=== PATIENT | female | born 1950 | race Caucasian/White ===

== ENCOUNTER 2021-03-28 13:02 | Emergency (ER) | payer MEDICARE ==
[~2021-03-28] VITALS: Ht 165.1 cm; Wt 55.3 kg
[~2021-03-28 13:02] MED LIST: ALLOPURINOL100 MG PO; BACTRIM 400-801 EACH PO; ESOMEPRAZOLE MA40 MG PO; FENOFIBRATE160 MG PO; FUROSEMIDE20 MG PO; LOSARTAN-HCTZ1 EAC1 PO; METOPROLOL TART50 MG PO; NIFEDIPINE ER90 MG PO; OLANZAPINE5 MG PO; POTASSIUM CHLO20 ME1 PO; PREDNISONE20 MG PO; SIMVASTATIN40 MG PO; VENTOLIN HFA18 GM INH; ZITHROMAX250 MG PO
--- NOTE | 2021-03-29 13:36 | EKG ---
[facility] [address] [facility] [place] [address] Signed Sinus rhythm with occasional premature ventricular complexes Left posterior fascicular block Abnormal ECG When compared with ECG of 08-FEB-2021 06:35, No significant change was found Confirmed by SANDRA FOSTER MD ([id number]) on 03/29/2021 1:36:34 PM Electronically Signed By: SANDRA FOSTER MD 03/29/21 1336 PATIENT NAME: MAEE TORIBIO Electrocardiogram DATE OF : 48 PHYSICIAN: SANDRA FOSTER MD REPORT #: [id number] REPORT IS CONFIDENTIAL AND NOT TO BE RELEASED WITHOUT AUTHORIZATION
== END 2021-03-28 17:45 | disposition short-term general hospital (02) ==
LOC: ED 13:02
DX: S72.141A Displaced intertrochanteric fracture of right femur, initial encounter for closed fracture (principal); Z20.822 Contact with and (suspected) exposure to COVID-19; W01.10XA Fall on same level from slipping, tripping and stumbling with subsequent striking against unspecified object, initial encounter; I10 Essential (primary) hypertension; M10.9 Gout, unspecified; Z79.899 Other long term (current) drug therapy; Z79.52 Long term (current) use of systemic steroids
CPT/HCPCS: 51702; 71045; 73502; 80053; 81001; 85025; 85610; 93005; 93010; 99285-25; C9803; J1170; U0003

== ENCOUNTER 2021-08-28 16:54 | Inpatient (IN) | payer MEDICARE ==
[~2021-08-28] VITALS: Ht 165.1 cm; Wt 53.0 kg
--- OUTSIDE RECORDS SUMMARY | 2021-08-28 16:56 | XMS ---
PreManage Notification: AMEE TORIBIO Security Cna Per Diem Events 1 event(s) in the past 18 months Most recent security events: Elopement at [facility] 02/07/2021 22:29 - Other Details: PATIENT LWBS CRITERIA MET - [facility] 02/08/2021-Current PHONE: Unknown Care Guidelines exist for the following facilities: [facility] ( 09/09/2019 ) Kiersten VISIT COUNT (12 MO.) [address] [place] [address] TOTAL 4 NOTE: Visits indicate total known visits. 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 - Fall on same level from slipping, tripping and stumbling with subsequent striking against unspecified object, initial encounter - Essential (primary) hypertension - Gout, unspecified - Displaced intertrochanteric fracture of right femur, initial encounter for closed fracture - Other intermediate accountant (current) drug therapy 02/08/2021 06:14 [facility] [place] TYPE: Emergency COMPLAINT: - COUGH DIAGNOSES: - Pneumonia, unspecified organism - Other care home (current) drug therapy - Urinary tract infection, site not specified - Essential (primary) hypertension - Acute pharyngitis, unspecified - Contact with and (suspected) exposure to COVID-19 - Gout, unspecified 02/07/2021 22:29 [facility] TYPE: Emergency COMPLAINT: - COUGH INPATIENT VISIT TRACKING (12 MO.) 04/04/2021 14:54 [facility] Francy CISNEROS TYPE: Physical Therapy DIAGNOSES: - Chronic kidney disease, stage 4 (severe) - Personal history of (healed) traumatic fracture - Other acute postprocedural pain - Fluid overload, unspecified - Pain in right hip - Retention of urine, unspecified - Hip fracture - Other specified postprocedural states - Other specified health status - Acute kidney failure, unspecified - Hyperlipidemia, unspecified - Other malaise - Solitary pulmonary nodule - Essential (primary) hypertension - Unspecified abnormalities of gait and mobility - Displaced intertrochanteric fracture of right femur, subsequent encounter for closed fracture with routine healing - Polycystic kidney, adult type - Anemia in chronic kidney disease [facility] DIAGNOSES: - Anemia in chronic kidney disease - Displaced intertrochanteric fracture of right femur, initial encounter for closed fracture - Polycystic kidney, adult type - Chronic kidney disease, stage 4 (severe) - Right hip fracture - Essential (primary) hypertension [email or web address]
[2021-08-29] MEDS ORDERED: LOSARTAN POTAS100 MG PO (13:06)
[2021-08-29] MEDS ORDERED: ATROVENT HFA12.9 GM INH (13:06)
[2021-08-29] MEDS ORDERED: TRAMADOL HCL50 MG PO (13:10)
[2021-08-29] MEDS ORDERED: INDAPAMIDE1.25 MG PO (13:12)
--- NOTE | 2021-08-31 19:05 | EKG ---
[facility] [address] [facility] [place] [address] Signed Sinus rhythm with frequent premature ventricular complexes in a pattern of bigeminy Nonspecific ST abnormality Abnormal ECG When compared with ECG of 28-MAR-2021 14:09, Non-specific change in ST segment in Anterior leads T wave inversion no longer evident in Lateral leads Confirmed by SANDRA FOSTER MD ([id number]) on 08/31/2021 7:05:18 PM Electronically Signed By: SANDRA FOSTER MD 08/31/21 190 PATIENT NAME: AMEE TORIBIO Electrocardiogram DATE OF : 48 PHYSICIAN: SANDRA FOSTER MD REPORT #: [id number] REPORT IS CONFIDENTIAL AND NOT TO BE RELEASED WITHOUT AUTHORIZATION
[2021-09-02] MEDS ORDERED: FERROUS SULFAT325 M2 PO (11:26)
== END 2021-09-02 15:00 | disposition home or self-care (01) | DRG 291 ==
LOC: ED 16:54 → CCU 20:41 → MS 08-30 12:13
PROVIDERS: ADMIT Internal Medicine; ATTEND Internal Medicine
DX: I13.0 Hypertensive heart and chronic kidney disease with heart failure and stage 1 through stage 4 chronic kidney disease, or unspecified chronic kidney disease (principal); J96.01 Acute respiratory failure with hypoxia; J96.02 Acute respiratory failure with hypercapnia; I50.33 Acute on chronic diastolic (congestive) heart failure; I16.1 Hypertensive emergency; N18.4 Chronic kidney disease, stage 4 (severe); Q61.3 Polycystic kidney, unspecified; Z20.822 Contact with and (suspected) exposure to COVID-19; E79.0 Hyperuricemia without signs of inflammatory arthritis and tophaceous disease; E78.5 Hyperlipidemia, unspecified; I27.20 Pulmonary hypertension, unspecified; M10.9 Gout, unspecified; M48.00 Spinal stenosis, site unspecified; Z98.890 Other specified postprocedural states
CPT/HCPCS: 36415; 36600; 71045; 74176; 80048; 82728; 82803; 83540; 83550; 83735; 83880; 84484; 85025; 93005; 93010; 93306; 94660; 94760; 96374; 97161; 97165; 99285-25; A9270; J1650; J1940; J3475; U0003

== ENCOUNTER 2021-11-12 11:27 | Observation (INO) | payer MEDICARE ==
[~2021-11-12] VITALS: Ht 165.1 cm; Wt 53.5 kg
[~2021-11-12 11:27] MED LIST changes: +ATROVENT HFA12.9 GM INH; +FERROUS SULFAT325 M2 PO; +INDAPAMIDE1.25 MG PO; +LOSARTAN POTAS100 MG PO; +TRAMADOL HCL50 MG PO
--- OUTSIDE RECORDS SUMMARY | 2021-11-12 11:31 | XMS ---
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 - Fall on same level from slipping, tripping and stumbling with subsequent striking against unspecified object, initial encounter - Essential (primary) hypertension - Gout, unspecified - Displaced intertrochanteric fracture of right femur, initial encounter for closed fracture - Other salvage determiner (current) drug therapy 02/08/2021 06:14 [facility] [place] TYPE: Emergency COMPLAINT: - COUGH DIAGNOSES: - Pneumonia, unspecified organism - Other salvage determiner (current) drug therapy - Urinary tract infection, site not specified - Essential (primary) hypertension - Acute pharyngitis, unspecified - Contact with and (suspected) exposure to COVID-19 - Gout, unspecified 02/07/2021 22:29 [facility] [place] TYPE: Emergency COMPLAINT: - COUGH INPATIENT VISIT TRACKING (12 MO.) 08/28/2021 20:41 [facility] [place] TYPE: Medical Surgical COMPLAINT: - DECOMPENSATED HEART FAILURE DIAGNOSES: - Contact with and (suspected) exposure to COVID-19 - Other specified postprocedural states - Chronic kidney disease, stage 4 (severe) - Hyperlipidemia, unspecified - Hyperuricemia without signs of inflammatory arthritis and tophaceous disease - Acute on chronic diastolic (congestive) heart failure - Gout, unspecified - Acute respiratory failure with hypoxia - Acute respiratory failure with hypercapnia - Polycystic kidney, unspecified - Hypertensive emergency - Heart failure, unspecified - Pulmonary hypertension, unspecified - Spinal stenosis, site unspecified - Hypertensive heart and chronic kidney disease with heart failure and stage 1 through stage 4 chronic kidney disease, or unspecified chronic kidney disease 04/04/2021 14:54 [facility] Francy CISNEROS TYPE: Physical Therapy DIAGNOSES: - [...] Anemia in chronic kidney disease 03/28/2021 19:[address] Francy CISNEROS TYPE: Surgical Services DIAGNOSES: - Anemia in chronic kidney disease - Displaced intertrochanteric fracture of right femur, initial encounter for closed fracture - Polycystic kidney, adult type - Chronic kidney disease, stage 4 (severe) - Right hip fracture - Essential (primary) hypertension [email or web address]
[2021-11-12] MEDS ORDERED: TORSEMIDE10 MG PO (12:44)
--- NOTE | 2021-11-12 14:43 | NUR ---
ADMISSION ASSESSMENT COMPLETE - PT RESTING IN BED, ROUNDING ON PT. PT DENIES CP, SOB OR DIZZINESS. CURRENT VS STABLE. ORDERS ACKNOWLEDGED FOR BLOOD TRANSFUSION. PT DENIES NEEDS AT THIS TIME, CALL LIGHT IN REACH.
--- NOTE | 2021-11-12 15:46 | NUR ---
RN IN ROOM TO START BLOOD UNIT 1 OF 2. PT UP IN CHAIR TALKING ON PHONE. PT AMBULATES TO BATHROOM USING FWW WITHOUT DIFFICULTY, SOB OR DIZZINESS. CALL LIGHT IN LAP.
[2021-11-12] MEDS ORDERED: POTASSIUM CHLO10 MEQ PO (16:03)
--- NOTE | 2021-11-12 16:36 | NUR ---
RN ROUNDING ON PT - DENIES SOB, OR PAIN. CALL LIGHT IN REACH.
--- NOTE | 2021-11-12 17:53 | NUR ---
RN ROUNDING ON PT - ASLEEP IN CHAIR, RR EVEN AND UNLABORED. BLOOD INFUSING WITHOUT DIFFICULTY. CALL LIGHT IN HAND.
--- NOTE | 2021-11-12 18:57 | NUR ---
RN IN ROOM TO ADMINISTER BLOOD UNIT 2/2. PT UP IN CHAIR, DENIES NEEDS. HAS CALL LIGHT IN REACH. VS STABLE.
--- NOTE | 2021-11-12 19:00 | NUR ---
BEDSIDE REPORT FROM AKTHERINE Rachel RN, KATHERINE IS STARTING 2ND UNIT OF BLOOD PER ORDERS AT THIS TIME, PT IS SITTING UP IN RECLINER, ALERT AND ORIENTED. PER REPORT PT HAS BEEN HYPERTENSIVE SINCE ADMIT. WILL MONITOR. PT HAS NO REQUESTS OR CONCERNS AT THIS TIME.
--- NOTE | 2021-11-12 19:35 | NUR ---
IN TO ASSIST PT WITH TOILETING NEEDS, PT SBA FWW, BACK TO THE CHAIR, NO FURTHER NEEDS AT THIS TIME
--- NOTE | 2021-11-12 21:01 | NUR ---
IN TO ASSIST PT TO THE TOILET, BACK TO THE CHAIR, RN NOW IN RM
--- NOTE | 2021-11-12 22:00 | NUR ---
SECOND UNIT OF BLOOD COMPLETED AT THIS TIME, PT ASSESSMENT SHOWS NO SIGNS OF INFUSION REACTION OF THIS TIME.
--- NOTE | 2021-11-12 23:21 | NUR ---
PT BACK FORM THE TOILET, SBA FWW TO BED, RN IN RM, WARM BLANKET PROVIDED
--- NOTE | 2021-11-12 23:40 | NUR ---
EXTRACTOR OPERATOR REPORTS UNABLE TO DRAW TO OBTAIN BLOOD FOR LABS AFTER TWO ATTEMPTS, THIS RN INTO ATTEMPT, BLOOD OBTAINED AND SENT TO LAB. PT RESTING IN BED ALERT AND ORIENTED. NO FURTHER REQUESTS AT THIS TIME.
--- NOTE | 2021-11-13 00:04 | NUR ---
DR FOSTER CALLED, STATED HE REVIEWED LABS, NO FURTHER BLOOD NEEDED AT THIS TIME.
--- NOTE | 2021-11-13 01:03 | NUR ---
PT CALLED FOR ASSISTANCE TO GO TO THE BATHROOM, SHE REPORTED TO BOBBY COKER THAT SHE FELT MILD TIGHTNESS IN HER CHEST. THIS RN INTO ASSESS, V/S TAKEN, PT REPORTS 2/10 MILD PAIN AT HER CHEST SHE SAID SHE USUALLY TAKES TYLENOL THREE TIMES A DAY AND JUST REALIZED SHE HASNT HAD ANY TODAY. V/S STABLE. PT RELAXED IN BED AFTER UP TO VOID IN BATHROOM. NO OTHER CONCERNS AT THIS TIME, TYLENOL 500MG PO PRN PROVIDED AT THIS TIME. WILL MONITOR FOR ANY CHANGES IN SYMPTOMS.
--- NOTE | 2021-11-13 04:33 | NUR ---
PT HAS BEEN UP FREQUENTLY TO AMBULATE TO BATHROOM WITH FWW AND ONE PERSON ASSIST, SHE IS TOLERATING ACTIVITY WELL, WITH STEADY GAIT. SHE HAS BEEN ADMINSITERED PRN TYKENOL FOR 2/10 CHEST DISCOMFORT THAT RESOLVED, SHE REPORTS SHE TAKES TYLENOL THREE TIMES A DAY AND HAS NOT HAD ANY TODAY. SHE HAS BEEN CONCERNED OVER SHIFT IN REGARDS TO HER HOME MEDICATIONS BEING ADMINISTERED WHILE IN HOSPITAL. SHE HAS HAD 2 UNITS RBC'S INFUSED AND TOLERATED WELL WITH OUT INFUSION REACTIONS. POST TRANSFUSION LABS INDICATE IMPROVED HGB. AWARE. NO NEW CONCERNS.
--- NOTE | 2021-11-13 06:26 | NUR ---
PT CALLED NURSES STATION FOR ASSISTANCE TO BATHROOM TO VOID, STANDBY ASSIST WITH FWW, PT HAS STEADY GAIT, PT NOW UP TO RECLINER WARM BLANKET AND SPRITE PROVIDED. SHE REPORTS THAT IF SHE DOES NOT HAVE BM THIS AM SHE WILL NEED ANOTHER CUP OF COFFEE, SHE DID NOT HAVE BM YESTURDAY. PT LAST BM ON 11-11-21.
--- NOTE | 2021-11-13 07:50 | NUR ---
patient up in the chair. said she would like to take a shower later. warm washcloth [facility]. no further needs at this time.
--- NOTE | 2021-11-13 07:55 | NUR ---
Patient awake sitting up in chair, no distress. Patient reports she slept well last night. PT denies pain at this time. No reported needs, personal supplies and call light within reach,
--- NOTE | 2021-11-13 08:19 | NUR ---
Tylenol 500mg po admin for reports of chronic right hip/back pain.
--- NOTE | 2021-11-13 11:12 | NUR ---
Patient up to void at this time, tolerated ambulating well using fww. Patient denies needs at this time. Personal supplies and call light within reach.
[2021-11-13] MEDS ORDERED: POTASSIUM CHLO10 MEQ PO (12:50)
[2021-11-13] MEDS ORDERED: LOSARTAN POTAS100 MG PO (12:50)
[2021-11-13] MEDS ORDERED: FERROUS SULFAT325 MG PO (12:51)
--- NOTE | 2021-11-13 13:01 | NUR ---
PATIENT IS IN THE SHOWER. BOBBY GIL IS STANDING BY FOR ASSISTANCE. PATEINT IS ABLE TO DO MOST OF THE WORK ON HER OWN. IV'S REMOVED.
== END 2021-11-13 14:40 | disposition home or self-care (01) ==
LOC: ED 11:27 → MS 11:28
PROVIDERS: ADMIT Internal Medicine; ATTEND Internal Medicine
DX: I13.2 Hypertensive heart and chronic kidney disease with heart failure and with stage 5 chronic kidney disease, or end stage renal disease (principal); N18.5 Chronic kidney disease, stage 5; D63.1 Anemia in chronic kidney disease; I50.32 Chronic diastolic (congestive) heart failure; K21.9 Gastro-esophageal reflux disease without esophagitis; E78.5 Hyperlipidemia, unspecified; E79.0 Hyperuricemia without signs of inflammatory arthritis and tophaceous disease; Q61.3 Polycystic kidney, unspecified; Z20.822 Contact with and (suspected) exposure to COVID-19; F39 Unspecified mood [affective] disorder
CPT/HCPCS: 36415; 36430; 80053; 81001; 82565; 83735; 84520; 85018; 85025; 85060; 86850; 86900; 86901; 86922; 87088; 87502; 99284; A9270; C9803; G0378; P9016; U0003

== ENCOUNTER 2022-11-20 10:36 | Inpatient (IN) | payer MEDICARE ==
[~2022-11-20] VITALS: Ht 165.1 cm; Wt 54.2 kg
[2022-11-20] VITALS (13 sets, daily range): BP systolic 100–176; BP diastolic 71–144
--- OUTSIDE RECORDS SUMMARY | ~2022-11-20 | XMS | Continuity of Care Document ---
Demographics + + + | Address | [address] | | | [place] [address] | + + + | Preferred Language | Unknown | + + + | Marital Status | Never | + + + | Rastafari Affiliation | Unknown | + + + | Race | White | + + + | Ethnic Group | Unknown | + + + Author + + + | Author | [facility] | + + + | Organization | [facility] | + + + | Address | [address] | | | [place] [address] | + + + | Phone | | + + + Care Team Providers + + + + | Care Structurer Name | Role | Phone | + + + + Unavailable | Unavailable | + + + + Allergies and Intolerances + + + + + + | date | description | facility | reaction | severity | + + + + + + | (no date) | No Known | [facility] | (no reaction) | (no severity) | | | Allergies | | | | + + + + + + Encounters No information. Functional Status No information. Immunizations No information. Medications No information. Problems No information. Procedures No information. Results/Labs No information. Social History No information. Vital Signs No information."
[~2022-11-20 10:36] MED LIST changes: +FERROUS SULFAT325 MG PO; +POTASSIUM CHLO10 MEQ PO; +TORSEMIDE10 MG PO
--- OUTSIDE RECORDS SUMMARY | 2022-11-20 10:38 | XMS ---
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 ED/UCC VISIT TRACKING (12 MO.) 11/20/2022 10:37 [facility] [place] TYPE: Emergency COMPLAINT: - LOW O2, DEHYDRATION INPATIENT VISIT TRACKING (12 MO.) No inpatient visits to display in this time frame [email or web address]
--- NOTE | 2022-11-20 14:43 | NUR ---
PT ARRIVED FROM [facility] WITH M/S CHARGE, PT IS AWAKE AND ALERT, ANSWERING QUESTIONS APPROPRIATELY, NO APPARENT DISTRESS, PT DENIES PAIN/SHORTNESS OF BREATH. PTS RESTING HR IS 150'S ON TELEMETRY. PT SWITCHED OVER TO HOOF TRIMMER, GIVEN CCU ORIENTATION AND PLAN OF CARE. IV METOPROLOL GIVEN PER EMAR, HR QUICKLY DOWN TO 120'S. REPORT RECEIVED FROM LATIA QUINTANILLA. PT IS ON ROOM AIR WITH SPO2 97%. PT ALSO GIVEN KAYEXELATE PER EMAR FOR HYPERKALEMIA.
--- NOTE | 2022-11-20 15:41 | NUR ---
PT UP TO [facility] TO VOID, PT WAS ONLY ABLE TO VOID 10 ML THEN BACK TO BED, STATES THIS IS NORMAL FOR HER TO VOID SMALL AMOUNTS "EVERY 20 MINUTES". BLADDER SCAN DONE SHOW 276ML. RESTING HR CURRENTLY 120'S SINUS RHYTHM.
--- NOTE | 2022-11-20 15:55 | NUR ---
PT UP TO BSC TO VOID AND HAVE BOWEL MOVEMENT, HR UP TO 140'S WITH ACTIVTY, BACK TO BED, DENIES PAIN/SOB.
[2022-11-20] MEDS ORDERED: METOPROLOL TAR100 MG PO (15:56)
[2022-11-20] MEDS ORDERED: POTASSIUM CHLO10 MEQ PO (16:00)
[2022-11-20] MEDS ORDERED: LOSARTAN POTAS100 MG PO (16:01)
--- NOTE | 2022-11-20 16:45 | NUR ---
PT UP TO BSC FOR SMALL LOOSE STOOL AND VOID, STOOL IS BLACK AND SOMEWHAT OILY IN APPEARANCE. HEMOCULT DONE IS NEGATIVE.
--- NOTE | 2022-11-20 17:27 | NUR ---
CALL TO MD TO UPDATE ON CONTINUED TACHYCARDIA AND URINARY FREQUENCY AND RETENTION. ORDER TO GIVE METOPROLOL EARLY AND WILL START ANTIBIOTICS.
--- NOTE | 2022-11-20 17:28 | NUR ---
PATIENT UP TO BSC WITH 1PA. PATIENT HAD 50ML VERY DK LIQUID STOOL. (PATIENT STATES THE ONLY THING SHE HAS EATEN TO IS CHOCOLATE PUDDING AND BELIEVES THATS WHATS CAUSING THE REPEATED DARK STOOL.) PATIENT SITTING AT SIDE OF BED FOR DINNER. CALL LIGHT IN EASY REACH
--- NOTE | 2022-11-20 17:54 | NUR ---
PT CONT TO GET UP APPROX Q10-15 MINUTES FOR SMALL VOIDS/DIARRHEA.
[2022-11-20] MEDS ORDERED: VITAMIN D325 MCG PO (17:56)
[2022-11-20] MEDS ORDERED: VITAMIN B-650 MG PO (17:56)
[2022-11-20] MEDS ORDERED: VITAMIN B-121000 MCG PO (17:56)
[2022-11-20] MEDS ORDERED: CALCIUM 500-VI1 EAC6 PO (17:57)
--- NOTE | 2022-11-20 17:57 | NUR ---
MED REC COMPLETE
--- NOTE | 2022-11-20 18:12 | NUR ---
PT UP TO BSC 3X IN THE LAST 15 MINUTES.
--- NOTE | 2022-11-20 20:00 | NUR ---
RECEIVED REPORT FROM SOCORRO BURNHAM; ALL QUESTIONS AND CONCERNS WERE ADDRESSED AT THIS TIME, PT IS ALERT AND ORIENTED, ABDOMEN IS DISTENDED WHICH PT STATES IS NORMAL FOR HER, PERIPHERAL PULSES PRESENT, PT AMBULATES WITH FWW TO BSC, LABS DRAWN, WILL CONTINUE TO MONITOR AND NOITFY PROVIDER WITH ANY CHANGES IN PT STATUS
--- NOTE | 2022-11-20 22:00 | NUR ---
LABS ARE IMPROVING, POTASSIUM IS TRENDING DOWN, MD ORDERED CALCIUM GLUCONATE TO BE GIVEN AND LABS TO BE REDRAWN IN AM, PT REMAINS HYPERTENSIVE AND TACHY, AWARE; WILL CONTINUE TO MONITOR
[2022-11-21] VITALS (14 sets, daily range): BP systolic 143–193; BP diastolic 70–131
--- NOTE | 2022-11-21 05:25 | NUR ---
PT SLEPT ON AND OFF, UP SEVERAL TIMES TO VOID, PT IS UP TO CHAIR, PT REMAINS HYPERTENSIVE, HR IN 90'S, WILL WAIT FOR A.M. LAB RESULTS AND NOTIFY MD IF INDICATED
--- NOTE | 2022-11-21 07:48 | NUR ---
IN ROOM TO CHECK ON PT. PT SITTING COMFORTABLE IN CHAIR. PT DENIES ANY PAIN AT THIS TIME. PT DENIES NEEDS.
--- NOTE | 2022-11-21 08:55 | NUR ---
PT IN ROOM.
--- NOTE | 2022-11-21 08:56 | NUR ---
SPOKE WITH PHARMACY ABOUT ROCEPHIN. PARAS FROM PHARMACY AND THIS RN DECIDED TO GIVE THE ROCEPHIN AT 0900 TODAY.
--- NOTE | 2022-11-21 11:36 | NUR ---
DR. SOTOMAYOR IN TO SEE PATIENT AND PLAN OF CARE DISCUSSED. PT TO REMAIN MED/SURG STATUS AND WILL POTENTIALLY TRANSFER BACK TO MEDICAL FLOOR TODAY.
--- NOTE | 2022-11-21 11:53 | NUR ---
DR. CABELLO IN ROOM TO ASSESS PT AND DISCUSS PLAN OF CARE.
--- NOTE | 2022-11-21 11:53 | NUR ---
PT GIVEN LUNCH TRAY. PT GIVEN ICE WATER. PT C/O NAUSEA. PT MEDICATED VIA EMAR. PT DENIES NEEDS.
--- NOTE | 2022-11-21 12:50 | NUR ---
SPOKE TO PT. ABOUT THE DISCHARGE PLAN. PATIENT LIVES WITH HER SON WHO HELPS CARE FOR THE PATIENT. THE SON DRIVES THE PATIENT TO HER APPOINTMENTS AND HELPS WITH SHOPPING,COOKING AND HOUSE CLEANING. PATIENT CAN DO HER OWN ADLS. PATIENT HAS FELT WEAK THIS LAST WEEK. PATIENT HAS A HISTORY OF POLYCYSTIC KIDNEY DISEASE AND BACK PAIN. PATIENT DOES NOT WANT TO GO TO A SNF. PATIENT WILL THINK ABOUT HOMEHEALTH AND WILL LET CASE MANAGEMENT KNOW IF SHE DOES WANT HELP.PATIENT HAS A WALKER THAT SHE USES ALL THE TIME.PATIENT CAN AFFORD HOUSING AND FOOD. PATTIENT STATES SHE DOES NOT WANT DIALYSIS. PATIENT STATES HER MD TOLD HER SHE MAY NEED HOSPICE IN THE FUTURE. PATIENT DOES NOT WANT HOSPICE AT THIS TIME. WILL FOLLOW THE PATIENT CLOSELY FOR FUTURE CHANGES IN THE DISCHARGE PLAN.
--- NOTE | 2022-11-21 13:30 | NUR ---
IN ROOM TO CHECK ON PT. PT RESTING IN THE CHAIR. PT BLOOD PRESSURE IS 173/[address] HAS [address]EN ELEV[address] CABELLO CALLED AND NOTIFIED. NEW PRN ORDERS TO FOLLOW.
--- NOTE | 2022-11-21 15:24 | NUR ---
PTS ON IN ROOM TO VISIT PT.
--- NOTE | 2022-11-21 16:26 | NUR ---
TELEPHONE REPORT FROM ESPINOZA QUINTANILLA CCU. NURSE THEN BROUGHT PATIENT OVER TO [facility] ROOM 122. PATIENT THEN IMMEDIATELY UP TO BATHROOM. APPEARS TO BE HAVING FREQUENT URINATION AND BOWEL MOVEMENTS EVERY 5 TO 10 MINUTES. PROVIDED PATIENT WITH BSC TO TRANSFER SELF OVER FROM RECLINER. ORIENTED TO ROOM, CALL LIGHT WITHIN REACH. APPEARS AAOX4. PATIENT REPORTS NO PAIN. IV TO LEFT HAND APPEARS CLOTTED, WILL NOT FLUSH. DC AND PROVIDED PRESSURE DRESSING. NS@125 INUSING TO R ARM. LUNG SOUNDS CLEAR, BOWEL TONES HYPERACTIVE. ABDOMENT APPEARS ROUND AND FIRM. FULL BODY ASSESMENT COMPLETED. NO OTHER NEEDS AT THIS TIME.
--- NOTE | 2022-11-21 18:00 | NUR ---
PATIENT BACK AND FORTH FROM BSC TO RECLINER HAVING SMALL AMOUNTS OF LOOSE STOOL. CMP REDRAW AT 1800, LABS PENDING. ASSISTED PATIENT WITH MARCE CARE. NO OTHER NEEDS AT THIS TIME.
--- NOTE | 2022-11-21 19:22 | NUR ---
REPORT RECEIVED FROM DAY SHIFT RN. PT SITTING IN RECLINER ALERT AND ORIENTED. DENIES NEEDS. WHITE BOARD UPDATED. CALL LIGHT IN REACH.
--- NOTE | 2022-11-21 19:45 | NUR ---
PT UP TO BSC TO VOID AND HAVE MEDIUM LOOSE BM. PT INCONTINENT OF SMALL AMOUNT BM ALSO. CLEAN ATTENDS PROVIDED. PT BACK TO RECLINER. WARM BLANKET PROVIDED. NO FURTHER NEEDS.
--- NOTE | 2022-11-21 20:40 | NUR ---
PT. VITAL SIGNS AND I/OS CHARTED ACCORDINGLY, ROOM TIDIED, COMMODE EMPTIED, TRASH CANS EMPTIED. FRESH ICE WATER PROVIDED, WARM BLANKET PROVIDED, CALL LIGHT LEFT WITHIN REACH, NO OTHER IMMEDIATE NEEDS AT THIS TIME.
--- NOTE | 2022-11-21 21:15 | NUR ---
EVENING ASSESSMENT COMPLETE. SCHEDULED MEDS ADMIN PER EMAR. PRN FOR PAIN ADMIN FOR 8/10 LOWER BACK PAIN. PT SITTING IN RECLINER. CONCERENED ABOUT GOING TO BED AT THIS TIME DUE TO FREQUENT LOOSE BM. PT DENIES NAUSEA OR SOB. FINE CRACKLES AUSCULTATED IN RLL. RA. SpO2 99%. RESPIRATIONS EVEN. LLE EDEMA NOTED. ENCOURAGED PT TO ELEVATE, BUT WORRIED ABOUT GETTING LEGS DOWN IN TIME TO GET TO BSC FOR BM. ENCOURAGEMENT PROVIDED. IVF INFUSING PER ORDER. PT DENIES QUESTIONS OR CONCERNS. CALL LIGHT IN REACH.
--- NOTE | 2022-11-21 21:38 | EKG ---
[facility] [address] [place] [address] Signed Sinus tachycardia Otherwise normal ECG When compared with ECG of 28-AUG-2021 17:07, Sinus tachycardia has replaced Sinus rhythm , premature ventricular complexes are no longer present Confirmed by Lydia Sotomayor MD () on 11/21/2022 9:38:01 PM Electronically Signed By: LYDIA SOTOMAYOR MD 11/21/22 2138 PATIENT NAME: AMEE TORIBIO Electrocardiogram DATE OF : 48 PHYSICIAN: LYDIA SOTOMAYOR MD REPORT #: [id number] REPORT IS CONFIDENTIAL AND NOT TO BE RELEASED WITHOUT AUTHORIZATION
--- NOTE | 2022-11-21 22:13 | NUR ---
PATIENT USED BSC AND WAS GIVEN PRIVACY. PT BP TAKEN AGAIN AND DOCUMENTED. PT ASSISTED BACK INTO BED FOR THE NIGHT. PUREWICK PLACED AND UNDERWEAR CHANGE. THIS ASSOCIATE MERCHANDISER AND SYSTEM DISPATCHER BOOSTED PT. UP IN BED. ROOM TIDIED, CALL LIGHT LEFT WITHIN REACH, AND WARM BLANKET GIVEN. NO OTHER NEEDS AT THIS TIME.
--- NOTE | 2022-11-22 00:26 | NUR ---
PT RESTING IN BED WITH EYES CLOSED. RESPIRATIONS EVEN. CALL LIGHT IN REACH.
[2022-11-22 02:02] VITALS: BP 164/59
--- NOTE | 2022-11-22 02:50 | NUR ---
VS OBTAINED, WNL. PT UP TO BR TO ATTEMPT BM WITH NO RESULTS. BACK TO BED, TY WELL. CLEAN PUREWICK IN PLACE. PT DENIES PAIN OR NAUSEA. NO FURTHER NEEDS. CALL LIGHT IN REACH.
[2022-11-22 06:32] VITALS: BP 158/67
--- NOTE | 2022-11-22 06:38 | NUR ---
PATIENT VITALS AND I/OS DOCUMENTED. ROOM TIDIED, TRASH CANS EMPTIED, PUREWICK DISCARDED, PT. UP TO BSC. FRESH GOWN PROVIDED, NEW BRIEFS CHANGED, BED MADE, PATIENT IN BED SIDE CHAIR. FRESH ICE WATER GIVEN, CALL LIGHT LEFT WITHIN REACH. NO OTHER IMMEDIATE NEEDS AT THIS TIME.
--- NOTE | 2022-11-22 07:18 | NUR ---
RECEIVED REPORT FROM NOC NURSE. PT IS A/O, RESPIRATIONS EVEN AND REGULAR. NEW BAG OF IV FLUIDS HUNG AND ASSSESSMENT COMPLETED. PT HAS FINE CRACKLES IN RLL. AND STATES ABDOMEN IS TENDER TO PALPATION BUT THAT IS HER BASELINE. SHE IS SITTING IN CHAIR. CALL LIGHT WITHIN REACH.
--- NOTE | 2022-11-22 08:35 | NUR ---
PT IN CHAIR, PT WANTED TO DO A SHOWER LATER ON IN THE MORNING. PLAN MADE, SH NEEDED NO OTHER CARES AT THIS TIME
--- NOTE | 2022-11-22 09:24 | NUR ---
SPOKE TO PATIENT ABOUT THE DISCHARGE PLAN. PT IS WILLING TO HAVE HOME HEALTH ORDERED WHEN PATIENT IS DISCHARGED. MD UPDATED ABOUT NEEDING HOME HEALTH ON DISCHARGE.
[2022-11-22 10:43] VITALS: BP 163/60
[2022-11-22] MEDS ORDERED: CEFPODOXIME PR200 MG PO (11:02)
[2022-11-22 13:39] VITALS: BP 178/83
--- NOTE | 2022-11-22 13:45 | NUR ---
PT IN CHAIR. ALERT AND ORIENTED. EXPRESSED HOPE OF DISCHARGE TODAY. STATED SON WAS COMING AT 3:00 WITH CLEAN CLOTHES TO TAKE HER HOME. INDICATED HAS SUFFICIENT HELP AT HOME. CONSENTED TO PRAYER. PRAYED.
== END 2022-11-22 16:00 | disposition home or self-care (01) | DRG 683 ==
LOC: ED 10:36 → MS 13:27 → CCU 14:25 → MS 11-21 15:55
PROVIDERS: ADMIT Family Medicine; ATTEND Family Medicine
DX: N17.9 Acute kidney failure, unspecified (principal); N39.0 Urinary tract infection, site not specified; Q61.2 Polycystic kidney, adult type; E87.5 Hyperkalemia; I12.9 Hypertensive chronic kidney disease with stage 1 through stage 4 chronic kidney disease, or unspecified chronic kidney disease; N18.9 Chronic kidney disease, unspecified; D63.1 Anemia in chronic kidney disease; M10.9 Gout, unspecified; M48.00 Spinal stenosis, site unspecified; E78.5 Hyperlipidemia, unspecified; E86.0 Dehydration; R00.0 Tachycardia, unspecified; A08.4 Viral intestinal infection, unspecified; Z79.899 Other long term (current) drug therapy; Z98.890 Other specified postprocedural states; Z79.891 Long term (current) use of opiate analgesic; Z91.158 Patient's noncompliance with renal dialysis for other reason; Z79.51 Long term (current) use of inhaled steroids
CPT/HCPCS: 36415; 80048; 80053; 81001; 83605; 83735; 83880; 84100; 85025; 93005; 93010; 94640; 97161; 97530; A9270; J0696; J1815; J2405; J7030; J7040

== ENCOUNTER 2022-11-23 20:06 | Inpatient (IN) | payer MEDICARE ==
[~2022-11-23] VITALS: Ht 165.1 cm; Wt 59.9 kg
--- OUTSIDE RECORDS SUMMARY | ~2022-11-23 | XMS | Continuity of Care Document ---
Demographics + + + | Address | [address] | | | [place] [address] | + + + | Preferred Language | Unknown | + + + | Marital Status | Never | + + + | Caodaism Affiliation | Unknown | + + + | Race | White | + + + | Ethnic Group | Unknown | + + + Author + + + | Author | [facility] | + + + | Organization | [facility] | + + + | Address | [address] | | | [place] [address] | + + + | Phone | | + + + Care Team Providers + + + + | Care Squad Boss Name | Role | Phone | + [...] Immunizations No information. Medications No information. Problems + + + + | date | description | facility | + + + + | 2022-08-30 07:34 | ENCNTR SCREEN MAMMOGRAM | [facility] | | | FOR MALIGNANT NEOPLASM OF | | | | BREAST | | + + + + | 2022-11-20 13:27 | VIRAL INTESTINAL | [facility] | | | INFECTION, UNSPECIFIED | | + + + + | 2022-11-20 13:27 | ANEMIA IN CHRONIC KIDNEY | [facility] | | | DISEASE | | + + + + | 2022-11-20 13:27 | HYPERLIPIDEMIA, | [facility] | | | UNSPECIFIED | | + + + + | 2022-11-20 13:27 | DEHYDRATION | [facility] | + + + + | 2022-11-20 13:27 | HYPERKALEMIA | [facility] | + + + + | 2022-11-20 13:27 | Essential (primary) | [facility] | | | hypertension | | + + + + | 2022-11-20 13:27 | HYPERTENSIVE CHRONIC | [facility] | | | KIDNEY DISEASE W STG | | | | 1-4/UNSP | | + + + + | 2022-11-20 13:27 | GOUT, UNSPECIFIED | [facility] | + + + + | 2022-11-20 13:27 | SPINAL STENOSIS, SITE | [facility] | | | UNSPECIFIED | | + + + + | 2022-11-20 13:27 | ACUTE KIDNEY FAILURE, | [facility] | | | UNSPECIFIED | | + + + + | 2022-11-20 13:27 | CHRONIC KIDNEY DISEASE, | [facility] | | | STAGE 2 (MILD) | | + + + + | 2022-11-20 13:27 | CHRONIC KIDNEY DISEASE, | [facility] | | | UNSPECIFIED | | + + + + | 2022-11-20 13:27 | URINARY TRACT INFECTION, | [facility] | | | SITE NOT SPECIFIED | | + + + + | 2022-11-20 13:27 | POLYCYSTIC KIDNEY, ADULT | [facility] | | | TYPE | | + + + + | 2022-11-20 13:27 | TACHYCARDIA, UNSPECIFIED | [facility] | + + + + | 2022-11-20 13:27 | DIARRHEA, UNSPECIFIED | [facility] | + + + + | 2022-11-20 13:27 | DETECTIVE AUTOMOBILE SECTION (CURRENT) USE OF | [facility] | | | INHALED STEROIDS | | + + + + | 2022-11-20 13:27 | MCFP (CURRENT) USE OF | [facility] | | | OPIATE ANALGESIC | | + + + + | 2022-11-20 13:27 | OTHER [facility] (CURRENT) | [facility] | | | DRUG THERAPY | | + + + + | 2022-11-20 13:27 | PATIENT'S NONCOMPLIANCE | [facility] | | | WITH RENAL DIALYSIS FOR OT | | + + + + | 2022-11-20 13:27 | OTHER SPECIFIED | [facility] | | | POSTPROCEDURAL STATES | | + + + + Procedures No information. Results/Labs No information. Social History No information. Vital Signs No information."
--- OUTSIDE RECORDS SUMMARY | ~2022-11-23 | XMS | Continuity of Care Document ---
Demographics + + + | Address | [address] | | | [place] [address] | + + + | Preferred Language | Unknown | + + + | Marital Status | Never | + + + | Yarsanism Affiliation | Unknown | + + + | Race | White | + + + | Ethnic Group | Unknown | + + + Author + + + | Author | [facility] | + + + | Organization | [facility] | + + + | Address | [address] | | | [place] [address] | + + + | Phone | | + + + Care Team Providers + + + + | Care Contact Worker Name | Role | Phone | + [...] + + + | 2022-11-20 13:27 | SOLAR/RENEWABLE ENERGY SALES (CURRENT) USE OF | [facility] | | | OPIATE ANALGESIC | | + + + + | 2022-11-20 13:27 | OTHER DETENTION (CURRENT) | [facility] | | | DRUG [...]
--- OUTSIDE RECORDS SUMMARY | ~2022-11-23 | XMS | Continuity of Care Document ---
Demographics + + + | Address | [address] | | | [place] [address] | + + + | Preferred Language | Unknown | + + + | Marital Status | Never | + + + | Sabianist Affiliation | Unknown | + + + | Race | White | + + + | Ethnic Group | Unknown | + + + Author + + + | Author | [facility] | + + + | Organization | [facility] | + + + | Address | [address] | | | [place] [address] | + + + | Phone | | + + + Care Team Providers + + + + | Care Scientist Immunology Name | Role | Phone | + [...] + + + | 2022-11-20 13:27 | POULTRY BREEDER (CURRENT) USE OF | [facility] | | | OPIATE ANALGESIC | | + + + + | 2022-11-20 13:27 | OTHER RETIREMENT (CURRENT) | [facility] | | | DRUG [...]
[~2022-11-23 20:06] MED LIST changes: +CALCIUM 500-VI1 EAC6 PO; +CEFPODOXIME PR200 MG PO; +METOPROLOL TAR100 MG PO; +VITAMIN B-121000 MCG PO; +VITAMIN B-650 MG PO; +VITAMIN D325 MCG PO
--- OUTSIDE RECORDS SUMMARY | 2022-11-23 20:09 | XMS ---
PreManage Notification: AMEE TORIBIO Security Premium Representative Events No recent Security Events currently on file CRITERIA MET - [facility] - 2 Visits in 30 Days CARE PROVIDERS [facility] [place] 02/08/2021-Current PHONE: Unknown Care Guidelines exist for the following facilities: Jeanette Enciso ( 09/09/2019 ) Kiersten VISIT COUNT (12 MO.) 2 [facility] TOTAL 2 NOTE: Visits indicate total known visits. ED/UCC VISIT TRACKING (12 MO.) 11/23/2022 20:07 [facility] TYPE: Emergency COMPLAINT: - WEAKNESS 11/20/2022 10:37 [facility] TYPE: Emergency COMPLAINT: - LOW O2, DEHYDRATION INPATIENT VISIT TRACKING (12 MO.) 11/20/2022 13:[address] 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
[2022-11-23 23:34] VITALS: BP 179/77
--- NOTE | 2022-11-23 23:52 | NUR ---
pt ARIVED TO [facility] ROOM AT THIS TIME, REPORT RECIEVED FROM ED RN MERARI. TRANSFER TO DE ROOM DELAYED DUE TO ACUITY IN ER. pT ORINETED TO ROOM, REMAINS MAINLY NONVERBAL, ANSWERES YES/NO QUESTIONS AND WILL SQUEEZE HAND TO RESPOND WITH YES. pt APPEARS TO UNDERSTAND CONVERSATION AROUND HER BUT SPEECH REMAINS VERY SLURRED. PRIMARY RN MARTINEZ RECEIVED BEDSIDE REPORT AND TAKING OVER pt CARE AT THIS TIME. TELE IN ROOM AND CALL LIGHT IN REACH.
[2022-11-24] VITALS (14 sets, daily range): BP systolic 157–208; BP diastolic 71–104
--- NOTE | 2022-11-24 00:02 | EKG ---
[facility] [address] [place] [address] Signed Sinus rhythm with premature supraventricular complexes Otherwise normal ECG When compared with ECG of 20-NOV-2022 11:07, premature supraventricular complexes are now present Nonspecific T wave abnormality no longer evident in Inferior leads Nonspecific T wave abnormality no longer evident in Lateral leads Confirmed by Lydia Sotomayor MD () on 11/24/2022 12:02:36 AM Electronically Signed By: LYDIA SOTOMAYOR MD 11/24/22 0002 PATIENT NAME: AMEE TORIBIO Electrocardiogram DATE OF : 48 PHYSICIAN: LYDIA SOTOMAYOR MD REPORT #: [id number] REPORT IS CONFIDENTIAL AND NOT TO BE RELEASED WITHOUT AUTHORIZATION
--- NOTE | 2022-11-24 01:21 | NUR ---
Admision completed based on objective evidence. Pt is alert and knows she has these deficiets. R side is very weak but able to have flicker movement. PT is continent and asked me to use the bathroom, applied purewick and pt voided with purewick. Will continue to monitor.
--- NOTE | 2022-11-24 03:21 | NUR ---
Pt sleeping. woke up for vitals. Neuros are same as before. Voiding in purwick.
--- NOTE | 2022-11-24 07:22 | NUR ---
Patient resting in bed, eyes open, no distress. IV site patient, fluids infusing per provider order. Patient close to RN station. No needs at this time.
--- NOTE | 2022-11-24 09:55 | NUR ---
PT LEFT FLOOR FOR IMAGING.
--- NOTE | 2022-11-24 10:02 | NUR ---
MED REC COMPLETE
--- NOTE | 2022-11-24 10:30 | NUR ---
RECVD CALL BRIGIDO CORMIER RN AT [facility], PATIENT WAS TO ADMITTED TO THEIR SERVICES TODAY. ADVISED OF PATIENT NEW ADMISSION AND CHART NOTES FAXED. GENIA RN STATES THEY WILL HOLD THE PATIENTS REFERRAL AND WAIT FOR FURTHER ASSESSMENT.
--- NOTE | 2022-11-24 11:21 | NUR ---
PATIENT IN BED RESTING, EYES OPEN, PT MAKES EYE CONTACT WHEN SPOKEN TO. IV SITE PATENT, FLUIDS INFUSING PER PROVIDER ORDER. RIGHT UPPER/LOWER EXTS' ARE VERY WEAK. PATIENT NON VERBAL WITH MORNING ASSESSMENT. PT ABLE TO GRASP WITH LEFT ARM. NOTABLE EDEMA TO LEGS. ABDOMEN IS DISTENDED. ORAL AND MARCE CARE DONE AT THIS TIME. PATIENT TURNED ON SIDE WITH PILLOWS FOR PRESSURE RELIEF. SPEECH THERAPY IN ROOM WORKING WITH PT. ASPIRATIONS PRECAUTIONS MAINTAINED, SUCTIONS SET UP. HEAD OF BED ELEVATED. PT CLOSE TO RN STATION.
--- NOTE | 2022-11-24 12:05 | NUR ---
INTO PATIENT ROOM WITH DR. SOTOMAYOR TO SPEAK WITH PATIENT SON CASSIDY. CASSIDY GIVEN UPDATE ON MRI AND PATIENT PROGRESS AT THIS TIME. DISCUSSED OPTIONS OF CARE FOR THE PATIENT WE MOVE FORWARD. ADVISED CASSIDY THAT REFERRAL COULD BE SENT TO [facility], BUT THE PATIENT WOULD HAVE TO MEET THE GOAL OF BEING ABLE TO PARTICIPATE IN 3 HOURS OF PT/OT/ST PER DAY. REFERRAL CAN BE SENT TO LOCAL SNFS FOR PLACEMENT FOR ONGOING THERAPIES WHEN STABLE. ADVISED CASSIDY THAT MEDICARE WILL PAY FOR 20 DAYS OF THE SNF STAY AND THEN THE PATIENT IS SUBJECT TO PAY A CO PAY ON DAY 21. INFORMATION FOR [facility] GIVEN TO CASSIDY TO START THE INSTALLER TECHNICIAN MEDICAID PROCESS. DR. SOTOMAYOR DISCUSSING HOSPICE OPTION WITH PATIENT SON. CASSIDY STATES HE WOULD NOT BE AVAILABLE TO STAY WITH THE PATIENT FOR 24 HOURS A DAY IF HOSPICE SERVICES WERE STARTED. ADVISED THAT IF PATIENT HAS ANY SAVING AVAILABLE WE COULD ATTEMPT PLACEMENT AT [facility] WITH HOSPICE SERVICES. CASSIDY GIVEN LIST OF LOCAL SNF/[facility]. CASSIDY WOULD LIKE PATIENT CHART FAXED TO [facility] A FIRST CHOICE OF PLACEMENT. CASSIDY STATES HE WILL CONTACT [facility] TODAY TO START THE INSTALLER TECHNICIAN MEDICAID PROCESS. WILL CONTINUE TO MONITOR PATIENTS PROGRESS WITH THERAPIES AND UP DATE FAMILY.
--- NOTE | 2022-11-24 13:27 | NUR ---
PATIENT ATTEMPTED TO DRINK SMALL AMOUNT OF MOD THICK LIQUIDS ON A SPOON. PT NOTED TO HAVE POOR PO TOLERANCE; SHE ATTEMPTED TO SWALLOW LIQUIDS SEVERBAL TIME WITH COUGHING. SHE TRIED SEVERAL TIME TO CLEAR HER THROAT, DOES NOT APPEAR TO HAVE A GOOD SWALLOW REFLEX. PO SUCTIONING UTILIZED AT THIS TIME. PT TOLERATED SUCTION WELL, AIRWAY NOTED TO BE CLEAR. HEAD OF BED REMAINS ELEVATED, SP02 96% ON ROOM AIR. ORAL CARE PROVIDED AT THIS TIME. PATIENT REPOSITIONED TO RIGHT SIDE AT THIS TIME WITH PILLOWS.
--- NOTE | 2022-11-24 13:46 | NUR ---
UPDATED DR. SOTOMAYOR REGARDING ASPIRATIONS CONCERNS. DR. SOTOMAYOR TO REVIEW ORDERS.
--- NOTE | 2022-11-24 14:21 | NUR ---
PATIENT IS RESTING IN BED, EYES CLOSED, RESPIRATIONS EVEN AND NON LABORED. PATIENT HAS NO NOTABLE ACUTE DISTRESS. CLOSE TO RN STATION.
--- NOTE | 2022-11-24 14:34 | NUR ---
PT IN BED. APPEARED TO BE SLEEPING. DID NOT DISTURB. PRAYED FOR CONTINUED HEALING.
--- NOTE | 2022-11-24 14:48 | NUR ---
PTS HEART RATE TRENDING UPWARD. MED/SURG CALLED AND UPDATED.
--- NOTE | 2022-11-24 15:09 | NUR ---
PTS HEART RATE CONTINUES TO TREND UPWARDS. NOW 100-140'S. MED/SURG CALLED, SOCORRO FU UPDATED AND STATES SHE WILL CHECK ON PT.
--- NOTE | 2022-11-24 15:23 | NUR ---
CHART FAXED TO JULIO C AT [facility] FOR REVIEW
--- NOTE | 2022-11-24 15:24 | NUR ---
Patient tachycardic, heart rate 144bpm non sustained. BP remains elevated 197/84. Dr. Kendrick notified and to bedside at this time. Verbal order obtained to discontinue IV fluids. Pt now saline locked. No further orders at this time.
--- NOTE | 2022-11-24 17:19 | NUR ---
Patient's heart rate intermittenlty increasing up to mid [address] Galvez regarding heart rate. New order obtained to do an EKG at this time. Dr. galvez to start home lopressor per his report. .
--- NOTE | 2022-11-24 17:56 | NUR ---
UPDATED DR. SOTOMAYOR REGARDING EKG RESULTS FOR AFIB/RVR, HEART RATE 144BPM. DR. SOTOMAYOR TO COME SEE PATIENT AND POSSIBLY TRANSFER TO CCU PER HIS REPORT.
--- NOTE | 2022-11-24 18:10 | NUR ---
GEM FROM DR. SOTOMAYOR TO ADMIN ADDITIONAL DOSE OF PRN LOPRESSOR 5MG IV AT THIS TIME. DR. SOTOMAYOR AT BEDSIDE. HEART RATE [address] SOTOMAYOR PATIENT TO BE TRANSFERRED TO ICU AT THIS TIME. PATIENT'S NEURO ASSESSMENT REMAINS UNCHANGED. PATIENT REMAINS NON VERBAL, OCCASIONAL MOANING WHEN WE ASK QUESTIONS. PATIENT IS ABLE TO SQUEEZE WITH HER LEFT HAND WHEN I PROMT HER TO ANSWER YES QUESTIONS. SHE IS ABLE TO LOOK AT ME WHEN I SPEAK TO HER WELL. PT'S SON UPDATED BY DR. SOTOMAYOR. BEDSIDE REPORT PROVIDED TO SOCORRO KELLOGG.
--- NOTE | 2022-11-24 18:20 | NUR ---
PT TRANSFERED FROM MED/SURG TO CCU BY THIS RN. PT ALERT AND RESPONSIVE BUT REMAINS NON VERBAL. REPORT RECEIVED FROM NICKIE QUINTANILLA. DR SOTOMAYOR AT BEDSIDE TO ASSESS PT. NIH ASSESSMENT PERFORMED SCORE OF 21. MD AWARE THAT SCORE IS HIGHER THAN PREVIOUSLY RECORDED. NO USABLE SPEECH AT THSI TIME. PT GRUNTS AND SQUEEZES LEFT HAND TO ANSWER QUESTIONS. ANSWERS YES AND NO QUESTIONS APPROPRATLY. ORAL CARE PRFORMED. GAG REFLEX PRESENT. PT ABLE TO USE LEFT HAND. PT REPORTS (WITH SQUEEZE OF LEFT HAND) THAT SHE CAN FEEL AND HAS NORMAL SENSATION ON RIGHT SIDE OF HER BODY. ASPIRATION PRECATUIONS IN PALCE WITH HEAD OF BED AT 30 DEGREES. PT REPORTS CHEST PAIN, UNABLE TO RATE PAIN. MD AWARE AND ENTERS MEDICATION ORDERS. SEE MAR FOR MEDICAITON GIVEN. PTS BED SATURATED WITH URINE. PER CARE AND SKIN CARE PERFORMED. LINENS CHANGED. NEW PURE WICK IN PLACE. PT ATTEMPTS TO ASSIST WITH ROLLING SIDE TO SIDE. TRIES TO FOLLOW COMMANDS TO THE BEST OF HER ABILITY. HEART RATE REMAINS ELEVATED RISING FROM 100-150'S IN A ~[address] MONITOR IN PLACE. MD AWARE. BLOOD PRESSURE REMAINS ELEVATED. MD AWARE, NO NEW ORDERS AT THIS TIME. OXYGEN SATURATION OF 91% ON ROOM AIR WITH RR OF 24-30. PT PLACED ON 2L O2 BY CA WITH OXGYEN SATURATIONS CLIMBING TO 97%. PT NOW RESTING WITH EYES CLOSED. HEAD OF BED LOCKED AT GREATER THAN 30 DEGREES, CURRENTLY AT 30 DEGREES. BEDR AILS UP. CALL LIGHT WITHIN REACH.
--- NOTE | 2022-11-24 19:30 | NUR ---
REPORT FROM DAYSHIFT COMPLETE. UPDATED AT SHIFT CHANGE IN REGARDS TO NIH SCORE 21, DEFICITS, CHEST PAIN, PAIN MEDICATIONS ADMINISTERED AND CURRENT VITALS. GAVE ORDERS TO CONTINUE CARE WITH CURRENT MEDICATIONS ORDERED AND CALL IF SIGNIFICANT CHANGE OR SUSTAINED TACHYCARDIA. PLAN TO MONITOR HTN AND ALLOW ELEVATED FOR NOW FOR REPERFUSION OF CVA.
--- NOTE | 2022-11-24 20:15 | NUR ---
PT ASSESSMENT COMPLETE, ORAL CARE PROVIDED, DISCUSSED PAIN, PT SQEEZED LEFT HAND WHEN ASKED IF SHE CONTINUED TO HAVE PAIN, 1MG IV MORPHINE ADMINISTERED, PT ALSO NOT TO HAVE PAIN WHEN ASSESSING RLE.
--- NOTE | 2022-11-24 20:56 | EKG ---
[facility] [address] [place], [place] [address] Signed Atrial fibrillation with rapid ventricular response Nonspecific ST and T wave abnormality Abnormal ECG When compared with ECG of 24-NOV-2022 17:25, Atrial fibrillation has replaced Sinus rhythm Nonspecific T wave abnormality now evident in Lateral leads Confirmed by Lydia Sotomayor MD () on 11/24/2022 8:56:43 PM Electronically Signed By: LYDIA SOTOMAYOR MD 11/24/222055 PATIENT NAME: AMEE TORIBIO Electrocardiogram DATE OF : 48 PHYSICIAN: LYDIA SOTOMAYOR MD REPORT #: [id number] REPORT IS CONFIDENTIAL AND NOT TO BE RELEASED WITHOUT AUTHORIZATION
--- NOTE | 2022-11-24 20:56 | EKG ---
[facility] [address] [place] [address] Signed Sinus tachycardia Nonspecific ST abnormality Abnormal ECG When compared with ECG of 23-NOV-2022 21:29, premature supraventricular complexes are no longer present Confirmed by Lydia Sotomayor MD () on 11/24/2022 8:55:51 PM Electronically Signed By: LYDIA SOTOMAYOR MD 11/24/222055 PATIENT NAME: AMEE TORIBIO Electrocardiogram DATE OF : [birth year] PHYSICIAN: LYDIA SOTOMAYOR MD REPORT #: [id number] REPORT IS CONFIDENTIAL AND NOT TO BE RELEASED WITHOUT AUTHORIZATION
--- NOTE | 2022-11-24 21:30 | NUR ---
ORAL CARE PROVIDED, DISCUSSED PAIN AT RLE, SHE IS ABLE TO SHAKE HEAD NO AT THIS TIME, PT SHOOK HEAD "NO" FOR PAIN AT HIP, KNEE, BUT WHEN REPOSITIONED RIGHT FOOT SHE GRIMACED AND SQEEZED HAD "YES" THAT SHE HAS PAINAT RIGHT ANKLE/FOOT. WILL UPDATE WITH REPORT.
--- NOTE | 2022-11-24 22:08 | NUR ---
CALLED TO REPORT PT IS INDICATING A SIGNIFICANT HEADACHE HER ONLY PAIN AT THIS TIME. PT IS NPO, NEW ORDER PROVIDED FOR IV TYLENOL AT THIS TIME, CONTENT MANAGEMENT CONSULTANT RN NOTIFIED THIS IS NOT STOCKED IN THIS UNIT.
--- NOTE | 2022-11-24 23:01 | NUR ---
PT RESTING QUIELTY IN BED, RESPIRATIONS 16/MIN, OXYGEN SATURATION 96%, EYES CLOSED RELAXED POSITION, SNORING NOTED, SHE REMAINS ON 1L N.C. AT THIS TIME. NO NEW CONCERNS, NO NEW DEFICITS AT THIS TIME.
[2022-11-25] VITALS (25 sets, daily range): BP systolic 151–197; BP diastolic 69–97
--- NOTE | 2022-11-25 05:18 | NUR ---
LAB DRAW COMPLETE FOR THIS AM, THIS RN INTO ASSESS PT, NO NEW DEFICITS, PT COMMUNICATES THAT SHE IS NOT HAVING PAIN ANYWHERE AT THIS TIME.
--- NOTE | 2022-11-25 06:38 | NUR ---
PURWICK CHANGED AT THIS TIME, DEPENDS CHANGED, PT REPOSITIONED, NO NEW DEFICITS. ORAL CARE PROVIDED.
--- NOTE | 2022-11-25 07:17 | NUR ---
REPORT RECEIVED FROM SOCORRO HUGHES. PT RESTING IN BED WITH EYES CLOSED, MOUTH OPEN BREATHING. RESPIRATIONS EVEN AND UNLABORED. PT REMAINS ON 2L O2 BY NC WITH OXYGEN SATUARTION OF 97%. NORMAL SINUS RYTHEM ON MONITOR WITH HEART RATE IN THE 70-80'S. PURE WICK AND SCD'S IN PLACE. PT ALLOWED TO REST. NO ADDITONAL NEEDS AT THIS TIME. BED RAILS UP. CALL LIGHT WITHIN REACH OF LEFT HAND.
--- NOTE | 2022-11-25 08:02 | NUR ---
MORNING ASSESSMENT AND MEDICATION DUE. PT AWAKE AND ALERT. PT CONTINUES TO SQUEEZE LEFT HAND TO ANSWER YES AND NO QUESTIONS. PT DENIES PAIN AT THIS TIME. LEFT HAND SQUEEZE MUCH WEAKER THIS MORNING. NON VERBAL STATUS CONTINUES WITH ONLY GRUTNS AND GROANS HEARD. PT UNABLE TO STATE NAME OR AGE. PT NOT PERFORMING TASKS/COMMANDS THIS MORNING. DOES NOT OPEN EYES OR MAKE A FIST ON COMMAND. PT CAN LIFT LEFT ARM BUT IS NOT GRABING OR REACHING INTENTIONALLY FOR OBJECTS OR WITH COMMANDS THIS MORNING. PT ALSO DOES NOT TRACK PIN LIGHT OR HAND WITH EYES. PUPILS REMAIN EQUAL AND REACTIVE. PT IS SEEN TO MOVE HEAD AND FOLLOW PEOPLE THEY MOVE AROUND THE ROOM. RIGHT FACIAL DROOP UNCHNAGED. RIGHT ARM AND LEG CONTINUE TO FALL IMMEDIATLY TO BED. TOTAL NIH SCORE THIS MORNING OF 22. LUNG SOUNDS CLEAR BUT FOR UPPER AIRWAY CONGESTION. PT INSTRUCTED TO COUGH, UNABLE PT FOLLOW THESE INSTRUCTIONS. BMAT LEVEL 1, DENNIS LIFT CONTINUES. PT REPOSITIONED TO LEFT SIDE LYING, SUPPORTED WITH PILLOWS. HEART TONES REGULAR WITH NORMAL SINUS RYTHEM ON MONITOR AND HEART RATE 80-90'S. +2 PITTING EDEMA CONTINUES IN HIPS AND BLE, +1 IN FEET. ABDOMEN SOFT WITH MODERATE DISTENTION. HYPOACTIVE BOWEL TONES AT THIS TIME. PT DENIES NAUSEA (WITH SQUEEZE OF HAND). PURE WICK REMAIN SIN PLACE WITH CLEAR YELLOW URINE IN CANSITER, QUANTITY SUFFICIENT. SKIN UNCHNAGED. FACE WASHED, ORAL CARE WITH SUCTION IN PLACE PERFORMED. MOUTH MOISTERIZER AND CHAP STICK APPLIED. ALLEVYN REMAINS IN PLACE OVER COCCYX FOR PROTCTION. PT REPOSITIONED TO LEFT SIDE AT THIS TIME, SUPPORTED WITH PILLOWS. DR. SOTOMAYOR TO BEDSIDE, UPDATED ON PT STATUS AND ASSESSMENT. ORDERS GIVEN TO KEEP PT ON 2L O2 BY AL FOR COMFORT. PT PLACED BACK ON 2L O2 BY AL WITH OXGYEN SATURATIONS OF 98-99%. RT MADE AWARE. DR SOTOMAYOR STATES TO KEEP PT NPO AT THIS TIME AND HOLD PO MEDICATIONS, MEDICATIONS HELD. PT REMAINS NPO WITH ASPIARATION PRECAUTIONS IN PLACE. DR. SOTOMAYOR AWARE OF ELEVATED BLOOD PRESSURE. NO ADDITIONAL NEW ORDERS AT THIS TIME. NO ADDITIONAL NEEDS AT THIS TIME. BED RAILS UP. PT RETURNS TO RESTING WITH EYES CLOSED, RESPIRATIONS EVEN AND UNLABORED. BED RAILS UP. CALL LIGHT WITHIN REACH.
--- NOTE | 2022-11-25 08:44 | NUR ---
MEDICATION DUE. PT CONTINUES RESTING WITH EYES CLOSED, RESPIRATIONS EVEN AND UNLABORED. PT OPENES EYES TO VOICES AND MOVEMENT IN THE ROOM. IV TO LEFT AC LEAKING WITH FLUSH. DC'D PER PROTOCOL. IV TO RIGHT FORARM WNL. NEW IV STARTED PER PROTOCOL TO LEFT FORARM. BRISK BLOOD RETURN NOTED. IV ABX STARTED THROUGH THIS IV SITE. PT GROANS ONCE IN A WHILE. PT DENIES (DOSE NOT SQUEEZE HAND) PAIN AND NAUSEA. PT RETURNS TO RESTING WITH EYES CLOSED AFTER CARES. RESPRIATIONS EVEN AND UNLABORED. BED RAILS UP. CALL LIGHT WITHIN REACH. OF LEFT HAND.
--- NOTE | 2022-11-25 09:06 | NUR ---
PT GROANING AND GRUNTING. PT SHAKES HEAD NO WHEN ASKED IF SHE HAS A HEADACHE. PT SQUEEZES HAND TWICE WHEN ASKED ABOUT CHEST PAIN AND STOMACH PAIN. PT SHAKES HEAD NO WHEN ASKED ABOUT NAUSEA. PT UNABLE TO RATE PAIN. BLOOD PRESSURE NOTED TO BE ELEVATED AND HEART RATE IN THE 90'S. SEE MAR FOR MEDICATION GIVEN. PT RETURNS TO RESTING WITH EYES CLOSED AFTER MEDICATION ADMINISTRATION. NO ADDITIONAL NEEDS. CALL LIGHT WITHIN REACH. BED RAILS UP.
--- NOTE | 2022-11-25 09:18 | NUR ---
DR SOTOMAYOR UPDATED REGARDING PTS COMPLAINTS OF CHEST PAIN. EKG AND TROPONIN ORDERED. RT TO BEDSIDE AND EKG PERFORMED, GIVEN TO MD. IV ABX INFUSION COMPLETE. 10ML NS FLUSH WITH 10ML WASTE FROM [facility] IV SITE. 3ML LAB DRAW, SENT TO LAB. LINE FLUSHED AND SALINE LOCKED. ALCOHOL CAP APPLIED.
--- NOTE | 2022-11-25 09:33 | NUR ---
PT RESTING WITH EYES CLOSED. REPSIRAITONS EVEN AND UNLABORED. DR. SOTOMAYOR UPDATED ON PT STATUS, NO ADDITIONAL NEW ORDER AT THIS TIME. BLOOD PRESSURE IMPROVING WITH PAIN MEDICATION ADMINISTRATION. PT ALLOWED TO REST. CALL LIGHT WITHIN REACH. BED RAILS UP.
--- NOTE | 2022-11-25 09:48 | NUR ---
X-RAY TECHNITIAN CALLED WITH NEW ORDER, STATES THEY WILL BE TO BEDSIDE SOON.
--- NOTE | 2022-11-25 10:02 | NUR ---
X-RAY TO BEDSIDE FOR IMAGING. PT TOLAREATE REPOSITOIN WELL WITH HEART RATE IN THE 90'S. PTS SISTER CALLED AND PTS STATES NOT TO UPDATE SISTER. THIS REQUEST IS CONFIRMED WITH HAND SQUEEZE AND SHAKES OF HEAD TWICE. SISTER ADVISED TO CONTACT PTS SON. PT REPOSITIONED TO RIGHT SIDE LYING, SUPPORTED WITH PILLOWS. PT REPORTS FEELING COMFORTABLE. NO ADDITIONAL REQUESTS AT THIS TIME. CALL LIGHT WITHIN REACH. BED RAILS UP.
--- NOTE | 2022-11-25 10:41 | NUR ---
PT RESTING WITH EYES CLOSED. RESPIRATIONS EVEN AND UNLABORED. VITAL SIGNS STABLE. CALL LIGHT WITHIN REACH. BED RAILS UP. PT ALLOWED TO REST.
--- NOTE | 2022-11-25 12:23 | NUR ---
NOON ASSESSMENT DUE. PT AWAKE AND ALERT. PT DENIES PAIN AND NAUSEA WITH SHAKE OF HEAD. PT ALERT AND ANSWERS QUESITONS CONSISTANTLY WITH SHAKE OF HEAD FOR "NO" AND SQUEEZE OF LEFT HAND FOR "YES." NEURO ASSESSMENT UNCHAGNED EXCEPT THAT PT IS MORE RESPONSIVE NOW. PT ANSWERING QUESTIONS MORE CONSISTANTLY AND LEFT HAND SQUEEZE IS STRONGER. PT REMAINS UNABLE TO MAKE A FIST WITH LEFT HAND BUT IS NOW ABLE TO OPEN AND CLOSE EYES ON COMMAND. NIH SCORE NOW 21. EYES EQUAL AND REACTIVE. PT REMAINS NON VERBAL BUT FOR GRUNTING. LUNG SOUNDS CLEAR IN UPPER LOBES AND RIGHT LOWER LOBE. FINE CRACKELS HEARD IN LEFT LOWER LOBE WHEN PT IS TURNED TO RIGHT SIDE. PT REMAINS ON 2L O2 BY NC WITH OXGYEN SATUARTIONS ABOVE 96%. RESPRAITONS EVEN AND UNLABORED. BLE EDEMA NOW +1. OTHER EDEMA UNCHANGED. ABDOMIN REMAINS SOFT BUT MODERATLY DISTENDED. BOWEL TONES ACTIVE. COMPLETE BED BATH PEROFRMED. PT TOLERATES VERY WELL, AND INTERACTS APPROPRIATLY AND ABLE. LOTION APPLIED TO DRY SKIN OVER CHEST, BACK AND LEGS. NEW ALLEVYN APPLIED TO COCCYX, PICUTRES TAKE OF RENDESS TO COCCYX, SEE PAPER CHARTING. SHAMPOO PERFORMED AND HAIR BRAIDED. MARCE CARE PERFORMED, FRESH DEPENDS AND PURE WICK IN PLACE. ORAL CARE PERFORMED. PT REPOSITIONED TO SEMIFOWER POSITION, SUPINE, WITH HEAD OF BED ELEVATED TO 30 DEGREES. PT REQUESTS TO WATCH TV. ASSISTED WITH FINDING PROGRAM SHE LIKES. PT RPEORTS FEEING COMFORTABLE. NO ADDITIONAL REQUESTS OR COMPLAINTS. CALL LIGHT WITHIN REACH. BED RAILS UP.
--- NOTE | 2022-11-25 13:02 | NUR ---
THIS RN TO ROOM TO CHECK ON PT. PT RESTING WITH EYES CLOSED. RESPIRATIONS EVEN AND UNLABORED. BLOOD PRESSURE REMAINS ELEVATED. DR. SOTOMAYOR CALLED AND UPDATED. NEW ORDERS PLACED. AWAITING VARIFICATION. PT ALLOWED TO REST. VITAL SIGNS OTHERWISE STABLE. CALL LIGHT WITHIN REACH. BED RAILS UP.
--- NOTE | 2022-11-25 13:25 | NUR ---
IV HYDRALAZINE ADMINISTERED FOR SBP 197. RESPIRATIONS ARE EVEN AND REGULAR. PT IS ALERT BUT NONVERBAL ATT.
--- NOTE | 2022-11-25 13:49 | NUR ---
THIS RN TO ROOM TO CHECK ON PT. PT AWAKEN ADN WATCHIGN TV. PT GUNTS BUT IS UNABLE TO EXPRESS NEED. PT DENIES PAIN, NAUSEA, FEELING COLD, OR NEEDING TO USE THE RESTROOM. PT REPOSITIONED TO RIGHT SIDE, PT SUPPORTED WITH PILLOWS. AFTER MULTIPLE QUESTIONS IT IS DISCOVERD THAT PT IS THIRSTY. MOUTH SWAP PROVIDED X5 WITH COLD ICE WATER. PT SUCKS ON SWAB. MINIMAL SWALLOWING REFLEX, SUCTION APPLIED FOR SAFETY. PT DROOLS WATER FROM LIPS. HEAD OF BED REMAIN ELEAVETD TO 38 DEGREES. NO ADDITIONAL NEEDS AT THIS TIME. CALL LIGHT WIHTIN REACH. BED RAILS UP.
--- NOTE | 2022-11-25 14:43 | NUR ---
PTS BLOOD PRESSURE REMAINS ELEVATED. HEART RATE ALSO SPIKING TO 140'S AT TIMES. NO SUSTAINED, RESOLVES QUICKLY BACK TO RATE OF 90-110. DR. RAMOS UPDATED. NO NEW ORDERS AT THIS TIME. PT SQUEEZES HAND "YES" FOR CHEST AND ABDOMINAL PAIN. TYELNOL GIVEN. PT FALLS QUICKLY BACK TO SEEL PAFTER INTERVENTIONS. IV ASSESSED, WNL. TYELNOL INFUSING. NO ADDITONAL NEEDS AT THIS TIME. CALL LIGHT WITHIN REACH. BED RAILS UP.
--- NOTE | 2022-11-25 15:04 | NUR ---
ofrimev infusion complete, iv site saline locked.
--- NOTE | 2022-11-25 15:26 | NUR ---
THIS RN TO ROOM TO CHECK ON PT. PT RESTING WITH EYES CLSOED. AWAKENS TO MOVEMENT IN THE ROOM. PT RPEORTS PAIN HAS RESOLVED AND DRIFTS BACK TO SLEEP. PT DENIES ADDITIONAL REQUESTS OR COMPLAINTS. CALL ILGHT WITHIN REACH. BLOOD PRESSURE IMPROVED. BED RAILS UP. CALL LIGHT WITHIN REACH.
--- NOTE | 2022-11-25 16:13 | NUR ---
AFTERNOON ASSESSMENT DUE. DR. COX TO BEDSIDE TO EVALUATE PT. DR. COX UPDATED ON PT STATUS AND ASSESSMENT. NEW ORDERS GIVEN, ORDERS ENTERED, REPEAT BACK PERFORMED, DR. COX REVIEWES ORDERS AT BEDSIDE. PT RESTINGS WITH EYES CLOSED INTIALLY BUT AWAKENS TO VOICE AND LIGHT TOUCH. PT CONTINUES TO USE LEFT HAND SQUEEZE FOR "YES" AND HEAD SHAKE FOR "NO." NEURO ASSESSMENT UNCHANGED. PT REPORTS A HEADACHE, FLACC SCORE OF 2/10. SEE MAR FOR MEDICAITON GIVEN. NEW BLOOD PRESSURE MEDICAITONS ADDED WELL. LUNG SOUNDS REMAIN CLEAR WITH FINE CRACKELS IN LLL AND DEMINISHED LOWER LOBE BREATH SOUNDS. PT REMAINS ON 2L O2 BY CN FOR COMFORT. OXGYEN SATURATIONS OF 98%. HEART SOUNDS BOUDING AT THIS TIME. HEART RATE IN THE 90'S. SEE MAR FOR MEDICATION GIVEN. NORMAL SINUS RYTHEM ON THE MONITOR. EDEMA TO BLE AND HIPS IMPROVING. NOW +1, ONLY TRACE EDEMA IN FEET. ABDOMEN REMAINS SOFT BUT DISTENDED. BOWEL TONES ACTIVE. PURE WICK CATHETER IN PLACE WITH 650ML CLEAR YELLOW URINE OUTPUT. PT REMAINS NPO DUE TO TROUBLE SWALLOWING EVEN WITH MOUTH SWAB WATER. PTS SON CASSIDY CALLED FOR UPDATE. CASSIDY UPDATED ON PT STATUS AND PLAN OF CARE. CASSIDY STATES HE HAS APPLIED FOR MEDICARE DISABILITY ASSISTANCE AND PLANS TO COME IN ON SUNDAY TO ASSIST WITH PHONE INTERVIEW. CASSIDY VERBALIZES UNDERSTANDING OF PT STATUS AND PLAN OF CARE AND CONTINUES TO STATE HE HOPES FOR PT TO BE DISCHARGED TO [place] WHEN STABLE. LUIS STATES HIS QUESTIONS HAVE BEEN ANSWERED. PT CONTINUES RESTING WITH EYES CLOSED. RESPIRATIONS EVEN AND UNLABORED. BED RAILS UP. CALL LIGHT WITHIN REACH. SCD'S IN PLACE.
--- NOTE | 2022-11-25 16:43 | NUR ---
PT HERE FOR MULTIPLE CVAs. PT REMAINS BED BOUND WITH PT AND OT ORDERS BUT LIMITED ABILITY TO PARTICIPATE. PT REMAINS NPO RELATED TO DIFFICULTY SWALLOWING WITH CHOAKING AND GAGGING. SPEECH THERPAY ORDER IN PLACE. NIH SCORE OF 22 THIS SHIFT WITH RIGHT SIDED DEFICITS, MOANING AND GRUNTING SPEACH ONLY, AND LIMITED ABILY TO FOLLOW COMMANDS AND PARTICIPATE IN ACTIVIES. PT DOES USE LEFT HAND TO SQUEEZE FOR "YES" AND SHAKES HEAD FOR "NO" AT TIMES. PRN PAIN MEDICAITON GIVEN FOR CHEST PAIN AND HEADACHE THIS SHIFT. MD AWARE. ADDITIONAL EKG AND TROPONIN PERFORMED. HEART RATE 80-140'S THIS SHIFT WITH 140 SPIKES LASTING ONLY FOR A FEW SECONDS. NORMAL SINUS TO SINUS TACHYCARDIA THIS SHIFT. MEDICAITON ADJUSTEMENTS MADE. CHEST X-RAY PERFORMED THIS SHIFT, FINE CRACKELS HEARD IN LEFT LOWER LOBE. PT REMAINS ON 2L O2 BY NC WITH OXGYEN SATUARTIONS ABOVE 96%. ABDOMEN REMAINS DISTENDED. EDEMA TO BLE IMPROVING, LASIX GIVEN THIS SHIFT WITH GOOD RESULTS. PURE WICK REMAINS IN PLACE. ALEVYN TO COCCYX CHANGED, PHOTOGRAPHS ON CHART. COMPLETE BED BATH AND SHAMPOO THIS SHIFT. PTS SON UPDATED BY ROTARY RIG ENGINE OPERATOR THIS SHIFT. PT DOES NOT USE CALL LIGHT AND MAKES LIMITED NEEDS KNOWN, INTENTIONAL HOURLY ROUNDING PERFORMED.
--- NOTE | 2022-11-25 17:18 | NUR ---
HOURLY ROUNDING: PT RESTING WITH EYES CLOSED. PT AWAKENS TO MOVEMENT IN THE ROOM. PT REPORTS ONGOING HEADACHE. FLACC SCORE OF 3/10. SEE MAR FOR MEDICAITON GIVEN. BLOOD PRESSURE MEDICATIONS NOT YET VARIFIED BY PHARMACIST. PT REQUESTS TV SOUND BE TURNED BACK ON, PROVIDED. DEPENDS DRY. PURE WICK REMAINS IN PLACE. NO ADDITIONAL NEEDS AT THIS TIME. CALL LIGHT WITHIN REACH. BED RAILS UP.
--- NOTE | 2022-11-25 18:23 | NUR ---
THIS RN TO ROOM TO CHECK ON PT. PT RESTING WITH EYES CLOSED. AWAKENS TO MOVEMENT IN THE ROOM. PT REPORTS HEADACHE HAS RESOLVED. PT REPORT THRIST. ORAL CARE DONE. GLICERINE MOUTH SWABS USED. CHAP SITCK APPLIED. MEDICATIONS VARIFED BY PHARAMCIST. METOPROLOL GIVEN, AWAITING MEDICATION PATCH. PT ASSISTED WITH SWITCHING TV STATIONS. PT DENIES ADDITONAL RQEUESTS OR COMPLAINTS. PURE WICK CATHETER EMPTIED OF 250ML CLEAR YELLOW URINE. DEPENDS REMAIN DRY. NO ADDITONAL NEEDS AT THIS TIME. CALL LIGHT WITHIN [facility]. BED RAILS UP.
--- NOTE | 2022-11-25 19:54 | NUR ---
PT RESTING QUIETLY IN BED NO DISTRESS, EYES CLOSED RESP RATE REGULAR AT 14/MIN
--- NOTE | 2022-11-25 20:48 | NUR ---
PT ALERT TO NAME SHE IS DROWSY, SHE IS ABLE TO SQEEZE RIGHT HAND TO COMMUNICATE, REMAINS NONVERAL, NO NEW NEURO DEFICITS. BOWEL TONES ARE IN ALL FOUR QUADRANTS.
--- NOTE | 2022-11-25 23:37 | NUR ---
PT WOKE AND HR ELEVATED TO 160/MIN NOT SUSTAINED, THEN REMIANED ELEVATED 120-130 FOR ANOTHER 10SEC., LOPRESSOR SCHEDULED FOR 0000 ADMINISTERED, ALONG WITH IV TYLENOL, PT ABLE TO SQEEZE LEFT HAND, SHE APPEARS TO BE CONFUSED, REORIENTED PT AND SHE NODDED, BODY POSITION RELAXED SLIGHTLY.
[2022-11-26] VITALS (20 sets, daily range): BP systolic 135–182; BP diastolic 62–85
--- NOTE | 2022-11-26 00:03 | NUR ---
PT ADMINISTERED HYDRALAZINE 10MG IV PRN FOR ELEVATED B/P AT THIS TIME
--- NOTE | 2022-11-26 00:25 | NUR ---
UPDATED IN REGARDS TO PT HTN AND TACHYCARDIA. PRN'S ADMINISTERED, AND CURRENT V/S
--- NOTE | 2022-11-26 00:49 | NUR ---
CALLED FOR SUSTAINED HR 150-160/MIN, NEW ORDER FOR DILTIAZEM 5MG IV NOW
--- NOTE | 2022-11-26 01:23 | NUR ---
AT NURSES STATION TO CHECK STATUS ON PT HR AND B/P. NEW ORDERS GIVEN AND PLACED
--- NOTE | 2022-11-26 02:20 | NUR ---
PT RESTING QUIETLY IN BED, EYES CLOSED RESP RATE REGULAR 19/MIN, V/S STABLE
--- NOTE | 2022-11-26 05:00 | NUR ---
PT HEART RATE UP TO 130/MIN AFTER B/P TAKEN, PT ADMINISTERED SCHEDULED LOPRESSOR 7.5MG IV NOW. PT RESTING IN BED EYES CLOSED NO DISTRESS NOTED.
--- NOTE | 2022-11-26 06:37 | NUR ---
PT ADMINISTERED PRN HYDRALIZINE FOR HTN
--- NOTE | 2022-11-26 07:30 | NUR ---
REPORT RECEIVED FROM SOCORRO ROWE. PT RESTING IN BED WITH EYES CLOSED, RESPIRATIONS EVEN AND UNLABORED. VITAL SIGNS STABLE WTIH NORMAL SINUS RYTHEM SEEN ON MONITOR AND HEART RATE IN THE 90'S. PT ALLOWED TO REST. CALL LIGHT WITHIN REACH. BED RAILS UP.
--- NOTE | 2022-11-26 08:01 | NUR ---
MEDICATION ARRIVED FROM PHARAMCY. OLD CLONIDINE PATCH REMOVED, NEW PATCH APPLIED. VITAL SIGNS REMAINS STABLE. PT CONTINES RESTING WITH EYES CLOSED. OPENS EYES BRIEFLY TO TOUCH WHEN APPLYING NEW PATCH AND THEN RETURNS TO SLEEPING. RESPIRATIONS EVEN AND UNLABORED. NO ADDITIONAL NEEDS AT THIS TIME. CALL LIGHT WITHIN REACH. BED RAILS UP.
--- NOTE | 2022-11-26 08:35 | NUR ---
MORNING ASSESSMENT AND MEDICATION DUE. PT CONTINUES RESTING WITH EYES CLOSED. AWAKENS TO VOICE AND TOUCH. OPENS EYES AND MAKES EYE CONTACT. MINMAL INTERACATION THIS MORNING ALTHOUGH PT IS ABLE TO SQUEEZE LEFT HAND FOR "YES" REPSONSES, ALTHOUGH, SIMILAR TO YESTERDAY MORNING'S ASSESSMENT, MEDICAL RECORDS MANAGER IS WEAKER AND INCONSISTANT. PT DOES NOT FOLLOW COMMANDS TO MAKE A FIST OR OPEN AND CLOSE EYES THIS MORNING. PT CONTINUES TO SEEM DROWSY. NIH SCORE REMAINS AT 22. NEURO ASSESSMENT OTHERWISE UNCHANGED. FLACC SCORE OF 0/10. LUNG SOUNDS CLEAR IN UPPER LOBES, DEMINISHED IN BASES, RESPRIAITONS EVEN AND UNLABORED WITH MILD SNORNING HEARD. OXGYEN SATUARTIONS 97% ON 2L O2 BY NC. NC REMAINS IN PLACE WITH NO ATTTEMPTS TO WEAN OXGYEN LEVEL PER MD VERBAL ORDER. RR OF 14 WHILE RESTING WITH EYES CLOSED. HEART RATE IN NORMAL SINUS RYTHEM WITH RATE IN THE 90'S. ONE EPISODE LASTING 16 BEATS OF HEART RATE IN THE 150'S DURRING ASSESSMENT, RESOLVES AFTER SECONDS BACK TO RATE OF 90'S. EDEMA MUCH IMPROVED. NOW RESOLVED IN HIPS AND FEET WITH TRACE EDEMA IN BLE. SCD'S REMAIN IN PLACE. SWELLING TO ABDOMEN ALSO IMPROVED. CAN NOW SEE AND FEEL LARGE LUMPS WHERE KIDNEYS ARE. BOWEL TONES HYPOACTIVE. DIGITAL EXMINATION OF RECTUM TO BE DONE ONCE PT IS FULLY AWAKE AND ALERT. DEPENDS DRY AT THIS TIME. QUANTITY SUFFICENT URINE CONTINUES FROM PURE WICK CATHETER. DRY SKIN TO LEGS, CHEST AND BACK IMPROVED. ALLEVYN REMAINS INTACT TO COCCYX, NO DRAINAGE PRESENT. PT CONTINUES RESTING WITH EYES CLOSED, RESPIRATIONS EVEN AND UNLABORED. BED RAILS UP. CALL LIGHT WITHIN REACH. PT ALLOWED TO REST.
--- NOTE | 2022-11-26 08:40 | NUR ---
DR. COX TO BEDSIDE TO ROUND ON PT, UPDATED ON PT STATUS AND ASSESSMENT. STATES HE WILL PLACE NEW ORDERS. NO ADDITIONAL NEEDS AT THIS TIME. PT CONTINUES RESTING WITH EYES CLOSED. RR 16, OXGYEN SATUATIONS 96% ON 2L O2 BY NC. BED RAILS UP. CALL LIGHT WIHTIN REACH.
--- NOTE | 2022-11-26 09:56 | NUR ---
PTS HEART RATE SPIKING TO 150-160'S FOR ~30 SECONDS. SELF RESOLVES. NEW MEDICAITON ORDERS IN AND VARIFIED. SEE MAR FOR MEDICATION GIVEN. PT CONTINEUS RESTING WITH EYES CLSOED. RESPIRATIONS EVEN AND UNLABORED. HEART RATE NOW IN THE 90'S. NIO ORDER PLACED FOR SUPPOSITORY GIVEN PT HAS NO RECENT BOWEL MOVEMENT. VERBAL ORDERS FROM DR. COX TO START D5 1/2 NS AT 50ML/HR, ORDERS ENTERED, REPEAT BACK PERFORMED. VITAL SIGNS STABLE WITH IMPROVED BLOOD PRESSURE. NO ADDITONAL NEES AT THIS TIME. CALL LIGHT WITHIN REACH. BED RAILS UP.
--- NOTE | 2022-11-26 10:48 | NUR ---
THIS RN TO ROOM TO CHECK ON PT. PT CONTINUES RESTING IN BED WITH EYES CLOSED. OPENS EYES TO VOICE AND LIGHT TOUCH BUT DRIFTS QUICKLY BACK TO SLEEP. VITALS SIGNS STABLE. CURTAINS OPENED TO ENCOURAGE DAY TIME AWAKENESS. NO ADDITIONAL NEEDS AT THIS TIME. CALL LIGHT WITHIN REACH. BED RAILS UP.
--- NOTE | 2022-11-26 11:55 | NUR ---
NOON ASSESSMENT AND MEDICAITON DUE. PT CONTINUES RESTING WITH EYES CLOSED, RESPIRATIONS EVEN AND UNLABORED. MILD SNORING AT TIMES. PT OPENS EYES TO TOUCH AND VOICE. PT DOES NOT FOLLOW COMMANDS OR INTERACT AT THIS TIME. PT IS NOT SQUEEZING LEFT HAND TO ANSWER YES AND NO QUESTIONS. PT APPEARS VERY LETHARTIC AND SOMULANT, FALLING ASLEEP FREQUENTLY BETWEEN CARES. PT FOLLOWS FEW COMMANDS SUCH MOVE TOES. PT MOVES LEFT HAND AWAY FROM PAIN AND TRIES TO GRAB SUCTION SPONGUE SWAB DURING ORAL CARES BUT OTHERWISE REMAINS LETHARGIC. LUNG SOUNDS REMAIN CLEAR TO DEMINISHED. PT REMAINS ON 2L O2 BY [facility] OXGYEN SATURATIONS ABOVE 94%. HEART TONES REGULAR WITH NORMAL SINSUS RYTHM ON MONITOR. HEART RATE IN THE 90'S. EDEMA TO BLE REMAINS IMPROVED WITH TRACE EDEMA IN BLE. ABDOMEN REMAINS SOFT BUT DISTENDED WITH LARGE BILATERAL LUMPS WHERE KIDENYS ARE LOCATED. PT DOES NOT CRINGE OR MOVE WITH ABDOMINAL PALPATION. BOWEL TONES RARE. RECTAL EXAM PERFOMRED WITH NO STOOL FELT IN RECTUM. SUPPOSITORY GIVEN PER MD ORDER. PT RESPONDS MINIMALLY TO ROLLING AND SUPPOSITORY. ORAL CARE WITH SUCTION PERFORMED INCLUDING MOUTH WASH, MOUTH MOISTERIZER AND CHAP SITCK. SMALL AREA OF REDNESS SEEN ON LIP SIMILAR TO A SPLIT LIP. 200ML CLEAR YELLOW URINE REMOVED FROM PURE WICK CANISTER. NEW PURE WICK PLACED AFTER MARCE CARE IS DONE. ALLEVYN REMAINS C/D/I OVER COCCYX. BLOOD PRESSURE REMAINS ELEVATED. PRN MEDICATION GIVEN (SEE MAR). PT REPOSITIONED TO LEFT SIDE LYING FROM [facility]. SUPPORTED WITH PILLOWS. HEAD OF BED AT 30 DEGREES. NO ADDITONAL NEEDS A THIS TIME. CALL LIGHT WIHTIN REACH. BED RAILS UP.
--- NOTE | 2022-11-26 12:33 | NUR ---
Therapist spoke with Dr. Esqueda over the phone to confirm orders for patient. Cleared to defer PT evaluation to 11/27/22 due to patient's poor ability to participate at this time. RN informed.
--- NOTE | 2022-11-26 12:40 | NUR ---
DR. COX CALLED AND UPDATED REGARDING PTS ASSESSMENT AND TEMPERATURE. NEW ORDERS GIVEN FOR BLOOD CULTURES. ORDERS ENTERED, REPEAT BACK PERFORMED. NO ADDITONAL NEW ORDERS. NO CHANGE IN PT STATUS AT THIS TIME. PT CONTINUES RESTING WITH EYES CLOSED. BED RAILS UP.
--- NOTE | 2022-11-26 13:09 | NUR ---
LAB TO BEDSIDE FOR CULTURES. PTS RIGHT FORARM IV SITE DIFFICULT TO FLUSH AND PT CRINGES WITH FLUSH. IV DC'D PER PROTOCOL. GAUZE AND COBAN APPLIED. NEW IV STARTED PER PROTOCOL TO LEFT FORARM. BRISK BLOOD RETURN NOTED. BLOOD CULTURES DRAWN. IV SITE FLUSHED AND SALINE LOCKED. OTHER LEFT FORARM IV SITE REMAINS WNL WITH NO S/S OF PHELBITIS. IV FLUIFDS INFUSING. NO ADDITONAL NEEDS AT THIS TIME. PT DOES NOT CRINGE OR INTERACT WITH LAB DRAW OR IV START. OPENS EYES BUT OTHERWISE CONTINUES TO REMAINS SOMULANT AWARE. NO ADDITIONAL NEEDS AT THIS TIME. CALL LIGHT WITHIN REACH. BED RAILS UP.
--- NOTE | 2022-11-26 14:50 | NUR ---
THIS RN TO ROOM TO CHECK ON PT. MEDICATION DUE. SEE MAR FOR MEDICATION GIVEN. . PT COTNINUES TO HAVE VERY MINIMAL INTERACTIONS WITH THIS RN. PT SQUEEZES HAND USING HER LEFT HAND BUT NO NECESSARILY ON COMMAND. PT FOLLOWS INCONSISTANT COMMANDS. NEW NIH SCORE COMPELTED, NOW 26 WITH THE ADDITONAL OF NO APPARENT VISION IN RIGHT EYE. INABILITY TO ANSWER QUESTIONS, AND DRIFT OF LEFT LEG TO BED. MD UPDATED. STAT CT ORDER GIVEN. ORDERS ENTERED, REPEAT BACK PERFORMED. PT TO CT WITH THIS RN. TOELRATED TRANSFER WELL. PT BACK TO ROOM. REMAINS ON 2L O2 BY NC. MILD TACHYCARDIA AND ELEVATED BLOOD PRESSURE CONTINUE. NO ADDITIONAL NEEDS AT THIS TIME. BED RAILS UP. PT CONTINUES RESTING, EYES OPEN BUT PT NOT RESPONDING TO INTERACTIONS.
--- NOTE | 2022-11-26 15:50 | NUR ---
THIS RN TO ROOM TO CHECK ON PT. PT RESTING WITH EYES CLOSED. MOUTH OPEN AND PT BREATHING THROUGH MOUTH. 2L O2 BY NC REMAINS IN PLACE WITH OXYGEN SATURATIONS OF 95% AT THIS TIME. PT REPOSITIONED TO RIGHT SIDE LYING, SUPPORTED WITH PILLOWS. NO ADDITONAL NEEDS AT THIS TIME. HEAD OF BED ELEVATED TO 30 DEGREES. BED RAILS UP. CALL LIGHT WITHIN REACH. PT ALLOWED TO REST.
--- NOTE | 2022-11-26 16:15 | NUR ---
AFTERNOON ASSESSMENT DUE. THIS RN TO ROOM. PT REMAINS VERY LETHARGIC AND GENERALLY UNRESPONSIVE. NIH SCORE REMAINS AT 26 WITH MINMAL REPONSE FROM PT. PT ABLE TO LIFT LEFT ARM. DOES NOT LIFT ARM INTENTIONALLY AND NO LONGER SQUEEZES HAND INTENTIONALLY TO ANSWER YES AND NO QUESTIONS. PT OPEN MOUTH BREATHING AT THIS TIME. MAKES EYE CONTACT OCCATIONALLY, MOSTLY STARING WITH GLAZED EYES PAST THIS RN. PT DOES NOT FOLLOW DIRECTIONS AT THIS TIME. PASSIVE RANGE OF MOTION ACTIVITIES PERFORMED WITH LEGS. IV SITE TO LEFT FORARM INFILTRATED. IV INFUSTION STOPPED. IV DC'D PER PROTOCOL. GAUZE AND COBAN APPLIED. ADDITONAL IV PLACED AT LEFT LATERAL AC SITE. BRISK BLOOD RETURN SEEN. IV FLUIDS RESUMED. +1 PITTING EDEMA PRESENT TO INFILTRATED SITE. WITH IV 1ST ATTEMPT TO RIGHT FORARM PT MAKES ATTEMPTS AT PULLING ARM AWAY WITH NEEDLE STICK. SENSAION TO THIS ARM CLEARLY REMAINS INTACT. HEART TONES REGULAR WITH HEART RATE 90-110. NORMAL SINUS RYTHM TO SINUS TACH ON MONTOR. BLOOD PRESSURE REMAINS MILDLY ELEVATED. TEMPERATURE IMPROVING. LUNG SOUNDS CLEAR, DEMINISHED IN LOWER LOBES. PT USING ABOMINAL MUSLES TO BREATH. ABDOMINAL DISTENTION UNCHANGED. BOWEL TONS RARE. PURE WICK IN PLACE WITH CLOUDYYELLOW URINE IN PURE WICK CANISTER. CT RESULTS BACK. DR. COX CALLED AND UPDATED. STATES HE IS COMING TO THE FLOOR TO EVLUATE PT AND TALK WITH FAMILY. PT RESTING WITH EYES CLOSED. OPEN MOUTH BREATHING WITH "O" SIGN PRESENT. BED RAILS UP. THIS RN REMAINS AT BEDSIDE.
--- NOTE | 2022-11-26 16:50 | NUR ---
8150 - DR. COX TO BEDSIDE, UPDATED ON PT STATUS. PHONE CALL PLACED TO CASSIDY PTS SON. DR COX SEPAKING WITH CASSIDY, PTS SON. CASSIDY VERBALIZES THAT PT WOULD WANT TO BE MADE COMFORTABLE NEAR END OF LIFE AND DOES NOT WANT HEROIC MEASURES BUT RATHER WANTS TO "NOT HAVE PAIN."
--- NOTE | 2022-11-26 17:22 | NUR ---
THIS RN REMAINS AT BEDSIDE. NEW ORDERS PLACED FOR COMFORT CARES. PT RESTING WITH EYES CLOSED, OPEN MOUTH BREATHING WITH "O" SIGN PRESENT. FLACC SCORE OF 0/10. RR OF 17 AT THIS TIME WITH OXYGEN SATURATION OF 96%. TELMETRY MONITORING, BLOOD PRESSURE AND CPOX MONITORING DC'D PER MD ORDER. OXGYEN REMAINS IN PLACE FOR COMFORT PER MD VERBAL ORDER. CLONIDINE PATCH LEFT IN PLACE PER MD VERBAL ORDER. ADDITIONAL ORAL CARE WITH SUCION DONE. MOUTH MOISTERIZER AND CHAPSTICK APPLIED. PT OCCATIONALLY REACHING LEFT ARM UP TO THE AIR. PT CONTINUES TO VOID. PURE WICK IN PLACE. PT CONTINUES RESTING WITH EYES CLOSED. HEAD OF BED AT 31 DEGREES. BED RAILS UP. ALINA LIGHT WITHIN REACH.
--- NOTE | 2022-11-26 18:04 | NUR ---
SPIRITUAL CARE CALLED AND UPDATED. STATES THEY ARE AVALIABLE ANYTIME AND TO CALL WHEN NEEDED. PT CONTINUES RESTING IN BED WITH EYES CLOSED. RR OF 16. RASS SCORE OF -1. FLACC SCORE OF 0/10. HEAD OF BED ELEVATED TO 30 DEGREES. PT APPEARS COMFORTABLE. NO ADDITIONAL NEEDS. BED RAILS UP. ROOM NEAR NURSES STATION.
--- NOTE | 2022-11-26 18:08 | NUR ---
PT HERE FOR MULTIPLE CVAs. PT REMAINS BED BOUND THIS SHIFT. PT REMAINS NPO RELATED TO DIFFICULTY SWALLOWING WITH CHOAKING AND GAGGING. NIH SCORE OF 22 THIS MORNING, WORSENING TO 26 THIS AFTER NEW WITH RIGHT SIDED DEFICITS, AND NEW LACK OF ABILITY TO PARITICPATE OR FOLLOW COMMANDS. REPEAT CT SCAN DONE SHOWING WORSENING CVA. PTS FAMILY UPDATED AND DISCISION MADE TO FOLLOW PTS WISES AND TRANSITION TO COMFORT CARES ONLY. RASS SCORE OF -1. PT NO LONGER ABLE TO USE LEFT HAND TO SQUEEZE FOR "YES" AND NO LONGER SHAKES HEAD. HEART RATE 80-150'S THIS SHIFT WITH 150 SPIKES LASTING ONLY FOR A FEW SECONDS. NORMAL SINUS TO SINUS TACHYCARDIA THIS SHIFT. MONITORING NOW DC'D FOR COMFORT CARE MEASURES. MEDICAITON ADJUSTEMENTS MADE. CINDER MAN PAIN MEDICAITON STARTED (SEE JUL). PT REMAINS ON 2L O2 BY NE FOR COMOFT. RECTAL EXAM THIS SHIFT WITH NO STOOL FELT IN RECTAL VAULT, BISYCODYL SUPPOSITORY GIVEN PRIOR TO TRANSITION TO COMFORT CARE MEASURES, NO RESULTS SEEN. ABDOMEN REMAINS DISTENDED. EDEMA TO BLE MUCH IMPROVED THIS SHIFT. PURE WICK REMAINS IN PLACE WITH ADQUATE OUTPUT. ALEVYN TO COCCYX UNCHANGED, AND C/D/I. PT DOES NOT USE CALL LIGHT AND NO LONGER MAKES EVEN LIMITED NEEDS KNOWN, INTENTIONAL HOURLY ROUNDING PERFORMED.
--- NOTE | 2022-11-26 18:36 | NUR ---
CONTINIOUS TILE MOLDER MORPHINE DELIEVERED BY DASHA GUZMÁN. STARTED AT 0.5MG/HR PER MD ORDER, SEE MAR. FLACC SCORE REMAINS 0/1O AT THIS TIME. RASS SCORE OF -1. PT WILL KEEP EYES OPEN WHEN STIMULATED BUT QUICKLY RETURNS TO RESTING WITH EYES CLOSED WHEN LEFT ALONE. PT CONTINUES BREATHING WITH MOUTH OPEN AND "O" SIGN PRESENT. PT REPOSITIONED TO SEMIFOWER/SUPINE WITH HEAD OF BED AT 30 DEGREES. PT SUPPORTED WITH PILLOWS. NO ADDITONAL NEEDS AT THIS TIME. CALL LIGHT WITHIN REACH. BED RAILS UP.
--- NOTE | 2022-11-26 19:15 | NUR ---
PATIENTS SON LARSY INTO ROOM TO VISIT AT BEDSIDE AT THIS TIME.
--- NOTE | 2022-11-26 19:20 | NUR ---
PATIENTS JONE BENJAMIN LEFT THE ROOM HE DID NOT STOP AT NURSES STATION TO TALK WITH STAFF.
--- NOTE | 2022-11-26 19:33 | NUR ---
PT RESTING IN BED EYES OPEN, ABLE TO MOVE LEFT ARM UP TO SCRATCH TOUCH HER LEFT CHEEK. SHE IS REMAINS NONVERBAL, SHE LOOKS AT THIS RN AT BEDSIDE WHILE TALKING TO HER, GAVE PT MESSAGE FROM SISTER KRYSTAL "PLEASE TELL HER I LOVE HER AND I AM PRAYING FOR HER" ALSO EXPLAINED TO PATIENT THAT STAFF IS ONLY GIVING UPDATES ON CARE AND STATUS TO SON CASSIDY, PER HER REQUEST AT EARLIER DATE WHEN SHE WAS ABLE TO COMMUNICATE WITH HAND SQUEEZE AND HEAD NOD/SHAKES. PT BLINKED, BUT DID NOT INDICATE A RESPONSE.
--- NOTE | 2022-11-26 20:00 | NUR ---
PT RESTING IN BED EYES CLOSED, RESPIRATION RATE 14/MIN, NO DISTRESS NOTED, BODY POSITION RELAXED.
--- NOTE | 2022-11-26 20:43 | NUR ---
PT RESTING QUIELTY IN BED EYES CLOSED RESPIRATION REGULAR/SHALLOW AT 16/MIN. NO DISTRESS NOTED.
--- NOTE | 2022-11-26 20:46 | EKG ---
[facility] [address] [place] [address] Signed Sinus rhythm with premature supraventricular complexes Prolonged QT Abnormal ECG When compared with ECG of 24-NOV-2022 17:36, Sinus rhythm has replaced Atrial fibrillation Vent. rate has decreased BY 55 BPM Nonspecific T wave abnormality no longer evident in Lateral leads Confirmed by OLGA LIDIA COX MD ([id number]) on 11/26/2022 8:46:00 PM Electronically Signed By: OLGA LIDIA COX 11/26/222045 PATIENT NAME: AMEE TORIBIO Electrocardiogram DATE OF : 48 PHYSICIAN: OLGA LIDIA COX REPORT #: [id number] REPORT IS CONFIDENTIAL AND NOT TO BE RELEASED WITHOUT AUTHORIZATION
--- NOTE | 2022-11-26 21:28 | NUR ---
PT RESTING QUUIELTY IN BED, EYES CLOSED NO DISTRESS NOTED, REGULAR/SHALLOW RESPIRATIONS 16/MIN. NO MOTTLING NOTED SKIN ASSESSMENT, PULSES FAINT BLE, PULSES STRONG BILATERAL UPPER EXTREMITIES, RADIAL PULSE RATE 110/MIN REGULAR.
--- NOTE | 2022-11-26 21:47 | NUR ---
PT RESTING QUIELTY IN BED EYES CLOSED, RESPIRATIONS 18/MIN, NO DISTRESS NOTED.
--- NOTE | 2022-11-26 22:36 | NUR ---
PT RESTING QUIETLY IN ROOM EYES CLOSED, RESPIRATION REGULAR/SHALLOW 16/MIN. NO DISTRESS NOTED
--- NOTE | 2022-11-26 23:26 | NUR ---
PT RESTING IN BED EYES CLOSED RESPIRATORY RATE 16/MIN, SHALLOW/REGULAR
--- NOTE | 2022-11-27 00:32 | NUR ---
PT RESTING QUIETLY IN BED EYES CLOSED, RESPIRATION SHALLOW/REGULAR, NOT LABORED AT 17/MIN. RADIAL PULSES STRONG. PEDAL PULSES ARE FAINT. ORAL CARE PROVIDED. PT DID NOT OPEN EYES OR WITHDRAWL FROM CARES
--- NOTE | 2022-11-27 00:59 | NUR ---
PT RESTIN GIN BED EYES CLOSED, REPOSITIONED, SHE DID NOT OPEN HER EYS FOR CARES, SHE DID OPEN HER EYES TO THIS RN SAYING HER NAME. PT NOT ABLE TO FOLLOW DIRECTION OR SQUEEZE LEFT HAND ON COMMAND. RESPIRATIONS 18/MIN REGULAR/SHALLOW. NO DISTRESS NOTED, NO LABORED BREATHING.
--- NOTE | 2022-11-27 02:13 | NUR ---
PT RESTING QUIELTY IN BED EYES CLOSED, RESPIRATINS SHALLOW/REGULAR RATE AT 16/MIN, NO DISTRESS NOTED, REPOSITIONED AND ORAL CARE PROVIDED.
--- NOTE | 2022-11-27 03:25 | NUR ---
PT RESTING QUIETLY IN BED EYES CLOSED RESPIRATIONS REGULAR/SHALLOW AT 16/MIN, NO DISTRESS NOTED, ORAL CARE PROVIDED, PILLOWS ADJUSTED FOR COMFORT.
--- NOTE | 2022-11-27 04:15 | NUR ---
PT RESTING IN BED EYES CLOSED, RESPIRATIONS REGULAR, NO DISTRESS NOTED
--- NOTE | 2022-11-27 06:35 | NUR ---
REPORT RECEIVED AT BEDSIDE IN CCU FROM SOLEDAD QUINTANILLA, PT RESTING WITH EYES CLOSED, RESP EVEN AND REG, IV D5NS @ 15ML/HR, LENS COATING TECHNICIAN CONTS AT 0.5MG MORPHINE/HR.
--- NOTE | 2022-11-27 06:45 | NUR ---
PT TRANSFERED TO ROOM 109 VIA BED, CHUX AND DRAW SHEET CHANGED, PT OPENS EYES WITH TURNING THEN CLOSES, OXYGEN REPLACED AT 2L/NC, SCDS REMOVED AT THIS TIME, EDEMA IN LEGS NOTED, IV SITE LEFT MID ARM WITH D5NS AT 15ML/HR, FIELD ARTILLERY OPERATIONS SPECIALIST CONTINUES AT 0.5MG/HR MORPHINE, HOB ELEVATED APPROX 30 DEGREES, SIDE RAILS UP X 4, BED ALARM ON AND BED IN LOW POSITION. SL NOTED IN LEFT LOWER ARM.
--- NOTE | 2022-11-27 07:15 | NUR ---
recieved report from nightshift nurse. pt is on comfort care and currently resting in bed.
--- NOTE | 2022-11-27 07:30 | NUR ---
Texted JULIO C at [facility] and asked if he will have a bed open for this pt. today.
--- NOTE | 2022-11-27 08:28 | NUR ---
PATIENT IS CURRENTLY IN BED. PT SEEMS TO BE DRY ENOUGH SO NEED FOR A SCOPOLAMINE PATCH. PERICARE GIVEN DUE TO PURWICK NO HOOKED UP TO SUCTION. pURWICK CHANGED AND HOOKED UP TO SUCTION. PATIENT FLOATED IN BED AND CURRENTLY RESTING.
--- NOTE | 2022-11-27 10:03 | NUR ---
pt resting. mouth was dry so applied mouth moisturizer. will apply every hour for comfort. turned patient to her left side. will return at 1200 to turn
--- NOTE | 2022-11-27 10:50 | NUR ---
Received a reply from , no beds open today. They may have an opening this week.
--- NOTE | 2022-11-27 12:21 | NUR ---
TURNED PT AND PERFORMED ORAL CARE. PT OPENED EYES BUT DID NOT RESPOND TO QUESTIONS. CORA GAINES.
--- NOTE | 2022-11-27 12:28 | NUR ---
PT WAS TURNED AND LIP MOISTURIZER APPLIED. CURRENTLY RESTING
--- NOTE | 2022-11-27 13:02 | NUR ---
PT IN BED. APPEARED TO BE SLEEPING DEEPLY. DID NOT RESPOND TO MY PRESENCE. PRAYED FOR COMFORT AND PEACE FOR PATIENT AND FAMILY.
--- NOTE | 2022-11-27 14:55 | NUR ---
pt was turned and moisturizer applied to lips, patient is resisting moisturizing care in mouth. Purwick changed. pt is back to resting
--- NOTE | 2022-11-27 17:08 | NUR ---
PT WAS TURNED TO RIGHT SIDE AND MOISTURIZER WAS APPLIED TO MOUTH AND LIPS. pT IS CURRENTLY RESTING.
--- NOTE | 2022-11-27 18:50 | NUR ---
PATIENT POSITIONED ON BACK, PILLOW UNDER KNEES. RR=16/MINUTE. PATIENT IS RESTING COMFORTABLY.
--- NOTE | 2022-11-27 19:02 | NUR ---
SHIFT REPORT RECEIVED FROM COLLINS QUINTANILLA, ASSUMING CARE OF PT.
--- NOTE | 2022-11-27 19:08 | NUR ---
PT LAYING WITH EYES CLOSED, RESP EVEN AND REG AT 16/MIN, OXYGEN REMAINS ON AT 2L/NC, CABINET MAKER CONTINUES WITH MORPHINE AT 0.5MG/HR, D5LR CONTS AT 15ML/HR, IV SITE APPEARS INTACT. SIDE RAILS UP X 4, HOB AT APPROX 30 DEGREES, BED LOW POSITION.
--- NOTE | 2022-11-27 19:30 | NUR ---
RN NOTIFIED BY KENDALL VENTURA THAT HE REMOVED OXYGEN AT APPROX THIS TIME DUE TO PT ON COMFORT CARE.
[2022-11-27 20:00] VITALS: BP 183/80
--- NOTE | 2022-11-27 20:00 | NUR ---
PT WITH EYES CLOSED, RESP EVEN AND REG, VS AND ASSESSMENT DONE, ORAL CARE DONE, EYE GTTS GIVEN, PURE WICK CHANGED AND PT REPOSITIONED TO RIGHT SIDE, IV SITE PATENT, IV INFUSING D5LR AT 15ML/HR, REQUIREMENTS MANAGER CONTINUES AT 0.5MG/HR, AFTER TURNING NOTED TREMOR IN RIGHT ARM, SUBSIDES AFTER A FEW MINUTES, WARM BLANKET GIVEN.
--- NOTE | 2022-11-27 20:35 | NUR ---
PT DID BRINK LEFT EYE WITH EYE GTT ADMINISTRATION, PT MOANS BRIEFLY WHEN HEAD PILLOW ADJUSTED, OTHERWISE UNRESPONSIVE TO VERBAL OR TACTILE STIMULUS.
--- NOTE | 2022-11-27 21:45 | NUR ---
PT RESTING QUIETLY WITH EYES CLOSED, RESP EVEN AND REG, CLOUD SOLUTIONS ARCHITECT AND IV INFUSING WELL WITH NO CHANGES.
--- NOTE | 2022-11-27 22:59 | NUR ---
WITH ASSIST OF ANOTHER RN, PT WAS REPOSITIONED, PILLOW UNDER RIGHT HIP, FLOATED. PT DID OPEN EYES, NON VERBAL, CLOSED EYES WHEN COVERED.
--- NOTE | 2022-11-28 00:50 | NUR ---
PT RESTING WITH EYES CLOSED, RESP EVEN AND REG, UNRESPONSIVE, EYE GTTS AND ORAL CARE GIVEN, LIP BALM TO LIPS, PT GENTLY TURNED TO LEFT SIDE, PT FELT WARM TO TOUCH, TEMP 98.8 AX, IV PATENT AND CRM SYSTEM ADMINISTRATOR CONTINUES AT 0.5 MG/HR, IVF AT 15ML/HR.
--- NOTE | 2022-11-28 01:50 | NUR ---
PT CONTINUES TO LAY WITH EYES CLOSED, RESP EVEN AND REG AT THIS TIME.
--- NOTE | 2022-11-28 03:40 | NUR ---
PT WITH EYES CLOSED, REMAINS UNRESPONSIVE, EYE GTTS APPLIED AND ORAL CARE COMPLETED, PURE WICK REMOVED, PERICARE GIVEN, NEW PURE WICK AND ATTENDS APPLIED, ALLEVAN REMAINS IN PLACE TO COCCYX. PT REPOSITIONED.
--- NOTE | 2022-11-28 05:45 | NUR ---
PT REMAINS UNRESPONSIVE TO VERBAL OR TACTILE STIMULUS, ORAL CARE DONE AND EYE GTTS GIVEN, PT REPOSITIONED, PURE WICK DRAINING, BROKERAGE PURCHASE AND SALE CLERK CLEARED, IVF INFUSING AT 15ML/HR, SITE INTACT, SL IN LEFT FOREARM FLUSHES WELL, SITE INTACT.
--- NOTE | 2022-11-28 07:30 | NUR ---
Report received from Oliva QUINTANILLA. Pt in bed with eyes closed, unresponsive to verbal/tactile stimuli. CORRECTIONS IDENTIFICATION TECHNICIAN continuous at 0.5mg. Pt currently on RA. Repositioned for comfort.
--- NOTE | 2022-11-28 07:50 | NUR ---
Chart faxed to [facility] requesting a bed. [facility] without openings.
--- NOTE | 2022-11-28 08:30 | NUR ---
Pt discussed in the 8:[address] white son declined Hospice as he does not have anyone to care for mom. It was also reported, they do not have funds to pay for placement to a [facility] or [facility]. I have sent the chart to [facility] and as of yesterday there are no beds open. I sent the chart to [facility] in [place] this am and I will send to [facility] in [place] this morning after the meeting.
--- NOTE | 2022-11-28 09:30 | NUR ---
Oral care complete. UOP measured.
--- NOTE | 2022-11-28 11:15 | NUR ---
New bag of NS hung with SOCIAL MEDIA DESIGNER continuous pump. Pt resting in bed, eyes closed, unresponsive to stimuli at this time. RR even, 22. Purewick in place. Repositioned.
--- NOTE | 2022-11-28 11:35 | NUR ---
PT IN BED. APPEARS TO BE SLEEPING. DID NOT ROUSE TO MY ENTRY. PRAYED FOR COMFORT AND PEACE.
--- NOTE | 2022-11-28 13:28 | NUR ---
IN TO TURN PATIENT. MARCE CARE DONE. NEW PURE WICK IN PLACE. ORAL CARE DONE. PATIENT REPOSITIONED ONTO RIGHT SIDE WITH PILLOWS UNDER LEFT HIPS. CALL LIGHT IN REACH.
--- NOTE | 2022-11-28 15:40 | NUR ---
Rounded on patient, no changes at this time. Pt's friend at bedside, discussed memories of patient and answered questions.
--- NOTE | 2022-11-28 18:34 | NUR ---
PRN morphine administered for increased work of breathing. Extensive oral care complete. RN CLINICAL TRIALS pump infusing WNL. Pt repositioned.
--- NOTE | 2022-11-28 19:35 | NUR ---
REPORT RECEIVED FROM SOCORRO SANCHES. pt REPOSITIONED AT THIS TIME TO LEFT SIDE. SPOT CHECK SPO2 72% ON RA, HR 154. RR 21. pt WITH SHALLOW BREATHING, OPEN MOUTH. EYES CLOSED. pt DOES NOT RESPOND TO VOICE OR REPOSITIONING.
--- NOTE | 2022-11-28 21:45 | NUR ---
ROUNDED ON PT. MOUTH BREATHING PER HER USUAL, RESP 13, WITH PERIODS OF APNEA, LONGEST WAS APPROX 10 SECONDS.
--- NOTE | 2022-11-28 22:20 | NUR ---
FROM NOURISHMENT ROOM THIS FOOD AND BEVERAGE OUTLETS MANAGER HEARD PATIENT HAD A LOUD SNORE.
--- NOTE | 2022-11-28 22:34 | NUR ---
ROUNDED ON PT AT 2233, PT WITH NO RESP, NO BREATHS, NO HEART BEAT. PRODUCTION SUPERVISOR TRAINEE ON FLOOR, DR COX NOTIFIED AT THIS TIME. 2242. HOUSE SUP[facility]
--- NOTE | 2022-11-28 22:38 | NUR ---
pt FOUND BY RN KAMI UNRESPONSIVE AT 223, NO RESPIRATIONS OR HEART BEAT AUSCULTATED BY THIS RN.
--- NOTE | 2022-11-28 23:10 | NUR ---
@[phone] notified son Ronaldo @ [phone]. Stated that pt wanted "[facility] in [place]". Stated that he didn't wish to come in, questions answered.
--- NOTE | 2022-11-28 23:24 | NUR ---
9520 call to donor line and spoke to leonidas. Requested records sent. [facility]
--- NOTE | 2022-11-29 00:16 | NUR ---
pt OFF FLOOR WITH [facility].
== END 2022-11-29 00:16 | DRG 64 ==
LOC: ED 20:06 → MS 20:08 → CCU 11-24 18:43 → MS 11-27 06:35
PROVIDERS: ADMIT Family Medicine; ATTEND Internal Medicine
DX: I63.9 Cerebral infarction, unspecified (principal); G93.6 Cerebral edema; G81.91 Hemiplegia, unspecified affecting right dominant side; N17.9 Acute kidney failure, unspecified; Q61.2 Polycystic kidney, adult type; N39.0 Urinary tract infection, site not specified; I12.9 Hypertensive chronic kidney disease with stage 1 through stage 4 chronic kidney disease, or unspecified chronic kidney disease; Z51.5 Encounter for palliative care; Z66 Do not resuscitate; R07.9 Chest pain, unspecified; N18.9 Chronic kidney disease, unspecified; M10.9 Gout, unspecified; R47.1 Dysarthria and anarthria; E78.5 Hyperlipidemia, unspecified; E87.5 Hyperkalemia; R47.81 Slurred speech; M48.00 Spinal stenosis, site unspecified; I65.23 Occlusion and stenosis of bilateral carotid arteries; D63.1 Anemia in chronic kidney disease; R29.810 Facial weakness; E83.42 Hypomagnesemia; I49.3 Ventricular premature depolarization; B96.20 Unspecified Escherichia coli [E. coli] as the cause of diseases classified elsewhere; Z79.82 Long term (current) use of aspirin; Z98.890 Other specified postprocedural states; Z79.891 Long term (current) use of opiate analgesic; Z79.02 Long term (current) use of antithrombotics/antiplatelets; Z91.158 Patient's noncompliance with renal dialysis for other reason; Z79.899 Other long term (current) drug therapy; Z79.51 Long term (current) use of inhaled steroids
CPT/HCPCS: 36415; 70450; 70496; 70498; 70551; 71045; 80053; 80061; 83036; 83735; 84100; 84484; 85025; 85610; 85730; 87040; 92610; 93005; 93010; 93306; 96361; 96374; 97167; 99285-25; G0378; J0131; J0360; J0696; J1650; J1940; J2270; J7121; Q3014; Q9967